=== PATIENT | male | born 1965 | race Caucasian/White ===

== ENCOUNTER → 2019-09-05 15:37 | Outpatient (CLI) | payer OTHER, SELFPAY ==
--- NOTE | 2019-09-05 15:39 | DI.RAD.S_ITS ---
PROCEDURE: XR CHEST 2V INDICATIONS: Feeling off, r/r cardiopulmonary etiology TECHNIQUE: 2 views of the chest were acquired. COMPARISON: None. FINDINGS: Surgical changes and devices: None. Lungs and pleura: Lungs are clear. No pleural effusions or pneumothorax. Mediastinum: Mediastinal contours are normal. Heart size is normal. Bones and chest wall: Multiple chronic-appearing right rib fractures. IMPRESSION: No acute disease Dictated by: Vipin Gaytan M.D. on 09/05/2019 at 16:06 Approved by: Vipin Gaytan M.D. on 09/05/2019 at 16:09
== END ==
PROVIDERS: Family Provider Family Medicine; PCP Family Medicine; Visit Provider Nurse Practitioner
DX: R53.83 Other fatigue (principal)
CPT/HCPCS: 71046

== ENCOUNTER → 2019-09-08 09:33 | Outpatient (CLI) | payer OTHER, SELFPAY ==
[2019-09-08 10:36] LABS: Add Manual Diff / Slide Review NO; Basophils Absolute Auto 0 /uL (0-100); Basophils Percent Auto 0.7 % (0-2); Eosinophils Absolute Auto 300 /uL (0-450); Eosinophils Percent Auto 5.1 % (2-4); Hematocrit 40.8 % (41-53); Hemoglobin 14.3 g/dL (13.5-17.5); Lymphocytes Absolute Auto 2100 /uL (1100-4500); Lymphocytes Percent Auto 34.8 % (25-40); Mean Corpuscular Hemoglobin 30.8 PG (26-34); Monocytes Absolute Auto 400 /uL (0-900); Monocytes Percent Auto 6.5 % (3-14); Neutrophils Absolute Auto 3200 /uL (1500-7000); Neutrophils Percent Auto 52.9 % (50-75); Platelet Count 305 X10^3/uL (150-400); Red Blood Cell Count 4.64 X10^6/uL (4.5-5.9); Red Cell Distribution Width 12.6 % (11.6-14.8); White Blood Cell Count 6.1 X10^3/uL (4.5-11.0)
[2019-09-08 10:46] LABS: Alanine Aminotransferase 28 IU/L (<50); Albumin 4.5 g/dL (3.5-5.0); Albumin Globulin Ratio 1.5 (1.0-2.8); Alkaline Phosphatase 51 U/L (38-126); Aspartate Aminotransferase 21 IU/L (17-59); BUN Creatinine Ratio 25.6 (6-22); Bilirubin Total 0.7 mg/dL (0.2-1.3); Blood Urea Nitrogen 23 mg/dL (9-20); Calcium 9.4 mg/dL (8.4-10.2); Carbon Dioxide 25 mmol/L (22-32); Chloride 105 mmol/L (98-107); Estimated Glomerular Filt Rate > 60.0 mL/min (>60); Glucose 158 mg/dL (70-100); HEMOLYSIS < 15 (0-50); Potassium 3.9 mmol/L (3.4-5.1); Sodium 139 mmol/L (137-145); Total Protein 7.5 g/dL (6.3-8.2)
[2019-09-08 10:55] LABS: Troponin I < 0.012 ng/mL (0.01-0.034)
== END ==
PROVIDERS: Family Provider Family Medicine; PCP Family Medicine; Visit Provider Nurse Practitioner
DX: R53.83 Other fatigue (principal)
CPT/HCPCS: 36415; 80053; 84484; 85025

== ENCOUNTER → 2019-09-23 07:23 | Outpatient (CLI) | payer OTHER, SELFPAY ==
[2019-09-23 08:53] LABS: Add Manual Diff / Slide Review NO; Basophils Absolute Auto 0 /uL (0-100); Basophils Percent Auto 0.8 % (0-2); Eosinophils Absolute Auto 300 /uL (0-450); Eosinophils Percent Auto 4.8 % (2-4); Hematocrit 40.4 % (41-53); Hemoglobin 14.4 g/dL (13.5-17.5); Lymphocytes Absolute Auto 1900 /uL (1100-4500); Lymphocytes Percent Auto 35.5 % (25-40); Mean Corpuscular HGB Conc 35.7 % (30-36); Mean Corpuscular Hemoglobin 31.4 PG (26-34); Mean Corpuscular Volume 87.8 fL (80-100); Monocytes Absolute Auto 400 /uL (0-900); Monocytes Percent Auto 7.3 % (3-14); Neutrophils Absolute Auto 2700 /uL (1500-7000); Neutrophils Percent Auto 51.6 % (50-75); Platelet Count 299 X10^3/uL (150-400); Red Blood Cell Count 4.59 X10^6/uL (4.5-5.9); Red Cell Distribution Width 12.5 % (11.6-14.8); White Blood Cell Count 5.3 X10^3/uL (4.5-11.0)
[2019-09-23 09:02] LABS: Cholesterol 237 mg/dL (140-199); Glucose 95 mg/dL (70-100); HDL Cholesterol 43 mg/dL (40-60); LDL Cholesterol Calculated 172 mg/dL (<100); Triglycerides 110 mg/dL (35-150)
[2019-09-23 09:32] LABS: Prostate Specific Antigen Scrn 0.771 ng/mL (0.1-4.0)
== END ==
PROVIDERS: PCP Family Medicine; Visit Provider Nurse Practitioner Family
DX: Z12.5 Encounter for screening for malignant neoplasm of prostate (principal); Z13.1 Encounter for screening for diabetes mellitus; E78.2 Mixed hyperlipidemia; R03.0 Elevated blood-pressure reading, without diagnosis of hypertension
CPT/HCPCS: 36415; 80061; 82947; 85025; G0103

== ENCOUNTER → 2019-10-24 08:01 | Outpatient (CLI) | payer OTHER, SELFPAY ==
[2019-10-24 10:00] LABS: Cholesterol 155 mg/dL (140-199); HDL Cholesterol 39 mg/dL (40-60); LDL Cholesterol Calculated 99 mg/dL (<100); Triglycerides 85 mg/dL (35-150)
== END ==
PROVIDERS: PCP Family Medicine; Referring Provider Nurse Practitioner Family; Visit Provider Nurse Practitioner Family
DX: E78.2 Mixed hyperlipidemia (principal)
CPT/HCPCS: 36415; 80061

== ENCOUNTER → 2020-04-02 10:11 | Outpatient (CLI) | payer OTHER, SELFPAY ==
[2020-04-03 20:58] LABS: COVID19 Sendout Not Detected (Not Detect)
== END ==
PROVIDERS: PCP Family Medicine; Visit Provider Nurse Practitioner
DX: Z01.812 Encounter for preprocedural laboratory examination (principal)
CPT/HCPCS: 87635

== ENCOUNTER 2020-04-05 11:45 | Day surgery (SDC) | payer OTHER, SELFPAY ==
--- NOTE | 2020-04-05 | PATH_ITS ---
[facility] Accession Number: [id number] . 01 Material submitted: . rectum - RECTAL POLYP . 02 Diagnosis: Rectal Polyp: Hyperplastic polyp. MRV 04/07/2020 0954 Local . 02 Electronically signed: . Alma Samson MD, Pathologist NPI- [id number] . 01 Gross description: . RECTAL POLYP: Received in formalin is 1 fragment(s) of martinez, soft tissue measuring 0.3 x 0.2 x 0.2 cm submitted entirely in 1 cassette(s) /QBJ 04/06/2020 0717 Local . 02 Pathologist provided ICD-10: Z12.11, K63.5 . 02 CPT . 954914 Performed at: 01 [facility] [address] [address], [place], [place] [id number] MD Dominik Prado MD Phone: [phone] Performed at: 02 [facility] [address] [place], [place] [id number] MD Jemima Rahman MD Phone: [phone]
[2020-04-05 12:20] VITALS: BP 131/82; PULSE 80; RESP 16; TEMP 36.2; O2SAT 98; BMI 28.5
--- NOTE | 2020-04-05 12:23 | P.OP.ENDO_ITS ---
Operative Date/Time/Diagnoses Date of procedure: 04/05/20 Time of procedure: 13:05 Pre-op diagnosis: 1. Screening for cancer Post-op diagnosis: other (1. Rectal polyp x1, 2 mm, removed with cold biopsy forceps, 2. Pancolonic diverticulosis) Procedure & Clinicians Study performed: 1. Colonoscopy Same procedure as scheduled: Yes Indications: 1. Screening for colon cancer Surgeon: Ekta Wynne Procedure Notes SCOAP/Timeout: 13:03 Procedure in detail: ENDOSCOPIST: Ekta Wynne MD Sedation RN: Cherelle Reina RN Sedation start time: 13:05 Sedation end time: 13:19 PROCEDURE: Colonoscopy with biopsy INDICATIONS: 1. Screening for cancer MEDICATION: Levsin 0.125 mg sublingual, incremental doses of Versed and fentanyl until appropriate level sedation achieved. ASA CLASS: 2 CECAL WITHDRAWAL TIME: 12 minutes COMPLICATIONS: None. EXTENT OF PROCEDURE: Cecum. QUALITY OF PREP: Good with portions of liquid stool. PROCEDURE: Prior to insertion of the colonoscope, a digital rectal examination was accomplished with circumferential palpation of the distal rectal mucosa without significant findings being noted. The high-definition colonoscope was passed into the rectum in the usual fashion and advanced over to the cecum without difficulty. The ileocecal valve, appendiceal stoma, and medial wall all could be inspected and no abnormalities were seen. ASCENDING COLON: As the colonoscope was withdrawn, care was taken to expose and inspect the haustral folds and a few, scattered diverticula were noted. HEPATIC FLEXURE: Mild diverticulosis, otherwise, normal, no polyps, or other a bnormalities. TRANSVERSE COLON: Mild diverticulosis, otherwise, normal, no polyps, or other abnormalities. DESCENDING COLON: Mild diverticulosis, otherwise, normal, no polyps, or other abnormalities. SIGMOID COLON: Mild diverticulosis, otherwise, normal, no polyps, or other abnormalities. RECTUM: Normal. J maneuver was produced a 2 mm rectal polyp was seen and removed with forceps. There was no significant perianal disease. The J maneuver was broken. The remainder of the rectum was inspected and there was no external hemorrhoid disease. The scope was withdrawn. IMPRESSION: 1. Rectal polyp x1, 2 mm, removed with cold biopsy forceps 2. Pancolonic diverticulosis, left greater than right PLAN: 1. Follow-up in clinic status post pathology results. The possibility of a missed lesion including a malignancy has been discussed with the patient previously. Potential alarm symptoms have been discussed and should be reported immediately. Post-procedure Recommendations: Will call with biopsy results Follow up: weeks (2) Disposition: PACU
--- NOTE | 2020-04-05 12:25 | PM.PREOP ---
Pre-operative Note COVID-19 COVID-19 status: Negative Result date/Date tested (Pos, Neg/Pending): 04/02/20 Interval Note History & Physical reviewed/Exam performed by Physician: Yes Changes to H&P: No ASA Class (for procedural sedation): II
[2020-04-05] MEDS: LACTATED RINGERS 1,000 ML 200 ML IV (12:38)
[2020-04-05] MEDS: HYOSCYAMINE 0.125 MG TABLET PO (12:38)
[2020-04-05] MEDS: MIDAZOLAM 5 MG/5 ML VIAL IV ×2 (13:04→13:09)
[2020-04-05] MEDS: fentaNYL 250 MCG/5 ML INJ IV ×2 (13:04→13:09)
[2020-04-05 13:24] VITALS: BP 110/74; PULSE 87; RESP 11; TEMP 36.1; O2SAT 94
[2020-04-05 13:29] VITALS: BP 116/76; PULSE 73; RESP 12; TEMP 36.6; O2SAT 95
[2020-04-05 13:34] VITALS: BP 105/63; PULSE 94; RESP 11; TEMP 36.7; O2SAT 96
[2020-04-05 13:39] VITALS: BP 110/81; PULSE 85; RESP 13; TEMP 36.6; O2SAT 96
[2020-04-05 13:46] VITALS: BP 119/80; PULSE 76; RESP 16; TEMP 36.8; O2SAT 95
--- NOTE | 2020-04-28 12:44 | P.HP_ITS ---
History of Present Illness History of Present Illness Date Patient Seen: 04/05/20 Chief complaint: Colonoscopy Narrative: 54 Years Old Male seen today for consideration of a screening colonoscopy. He has never had a colonoscopy. There have been no lower GI symptoms suggesting disease such as change in bowel habits, bleeding, abdominal pain or anemia. There's been no family history of colon cancer or colon polyps. Overall health issues have been stable, including no major cardiac events for at least 6 weeks. Current Medications (verified): 1) Hydrochlorothiazide 25 Mg Oral Tablet (Hydrochlorothiazide) .... Take 1 tablet by mouth once a day, for blood pressure control. 2) Amlodipine Besylate 10 Mg Oral Tablet (Amlodipine Besylate) .... take one tablet daily for control of blood pressure 3) Atorvastatin Calcium 20 Mg Oral Tablet (Atorvastatin Calcium) .... Take 1 tablet by mouth daily for cholesterol control. Allergies (verified): No Known Drug Allergies Past Medical History: Facial numbness Ulnar nerve entrapment at right elbow HERNIA, UMBILICAL Seasonal affective disorder ANXIETY ESOPHAGEAL REFLUX HYPERTENSION HYPERLIPIDEMIA Past Surgical History: Appendectomy Family History: Reviewed history from 01/08/2020 and no changes required: Father: HTN, Hyperlipidemia Mother: HTN Siblings: sister 6 years older healthy and brother 4 years older healthy some drug and alcohol abuse Social History: Reviewed history from 11/18/2019 and no changes required: Marital Status: Children: 2 Occupation: Teacher -[employer] Household Members: Ele - (08/1965) Education: [employer] Alcohol drinks/day: 2/day Caffeine use/day: 5 Exercise Times per Week: 3-4 Guns in home: yes Patient History Medical History (Updated 04/05/20 @ 12:15 by Jemima Horton RN) Family history of pseudocholinesterase deficiency (Acute) Family & Social History Family History Father Age: 83 Hyperlipidemia Gout Mother Age: 80 Arthritis Social History: household members spouse,children Tobacco & Substance use: Smoking Status Former smoker alcohol intake current alcohol intake frequency 0-2 drinks per day Substance Use Type does not use Meds Home Medications and Allergies Home Medications Medication Instructions Recorded Confirmed Type atorvastatin 20 mg tablet 20 mg PO DAILY #90 tab 09/24/19 04/05/20 Rx lisinopril 5 mg tablet 5 mg PO DAILY #180 tab 10/24/19 04/05/20 Rx hydrochlorothiazide 25 mg PO DAILY 04/05/20 04/05/20 History Allergies Allergy/AdvReac Type Severity Reaction Status Date / Time propofol Allergy Verified 04/05/20 12:17 Review of Systems Review of Systems ROS: Yes All systems reviewed with the patient and are negative except as otherwise documented Exam Vital Signs (past 8 hours): Oxygen Delivery Method Room Air Narrative Exam Narrative: GENERAL: Alert and oriented, appearing stated age and in no acute distress. HEENT: Head normocephalic/atraumatic. Pupils equal, round, and reactive to light and accomodation. Extraocular muscles intact. Tympanic membranes clear. Nasal mucosa moist, septum midline. Oral mucosa moist, no lesions. Neck soft and supple, no lymphadenopathy. LUNGS: Clear to ausculation bilaterally, no wheezes, rhonchi or rales. CV: Normal S1 and S2 with regular rate and rhythm, no audible murmurs, rubs or gallops. ABDOMEN: Soft, non-tender, non-distended, no organomegaly. Positive bowel sounds. EXTREMITIES: No clubbing, cyanosis, or edema. NEURO: Cranial nerves II through XII grossly intact, no focal deficits. PSYCH: Alert and oriented x 3. SKIN: No concerning lesions. Assessment & Plan Assessment & Plan narrative: 1. Screening for colon cancer Plan for colonoscopy. The nature and character of the procedure as well as anticipated results were discussed. The possibility of not completing the procedure was also discussed. Possible complications including aspiration pneumonia, bleeding, perforation and reaction to medications either for sedation or preparation and missed lesions were discussed. Questions were answered and proceeding to the colonoscopy was elected. Informed consent signed. I sincerely appreciate the referral allowing me to participate in this patient's care. Please contact me with any questions or concerns. Worst
== END 2020-04-05 14:00 | disposition home or self-care (01) ==
PROVIDERS: PCP Family Medicine; Referring Provider Student in an Organized Health Care Education/Training Program; Visit Provider Student in an Organized Health Care Education/Training Program
PROC: 0DJD8ZZ Inspection of Lower Intestinal Tract, Via Natural or Artificial Opening Endoscopic (ICD-10-PCS; CPT 45378; principal; 2020-04-05 13:00)
DX: K62.1 Rectal polyp (principal); Z12.11 Encounter for screening for malignant neoplasm of colon; I10 Essential (primary) hypertension; E78.5 Hyperlipidemia, unspecified; F41.9 Anxiety disorder, unspecified; K57.30 Diverticulosis of large intestine without perforation or abscess without bleeding
CPT/HCPCS: 45380; J2250; J3010

== ENCOUNTER → 2021-09-23 09:47 | Outpatient (CLI) | payer OTHER, SELFPAY ==
[2021-09-23 10:45] LABS: COVID19 -Nasal RAPID Negative (Negative)
== END ==
PROVIDERS: PCP Family Medicine; Visit Provider Surgery
DX: Z01.812 Encounter for preprocedural laboratory examination (principal); Z20.822 Contact with and (suspected) exposure to COVID-19
CPT/HCPCS: 87635; C9803

== ENCOUNTER 2021-09-26 09:50 | Day surgery (SDC) | payer OTHER, SELFPAY ==
[2021-09-20 15:09] VITALS: BMI 29.1
[2021-09-26] VITALS (10 sets, daily range): BP systolic 90–131; BP diastolic 47–81; PULSE 62–72; RESP 12–16; TEMP 36.6–36.9; O2SAT 94–99; BMI 29.9
[2021-09-26] MEDS: LACTATED RINGERS 1,000 ML 42 ML IV ×2 (10:27→11:49)
--- NOTE | 2021-09-26 10:32 | PM.HP.1 ---
History of Present Illness History of Present Illness Date Patient Seen: 09/26/21 Time Patient Seen: 10:32 Chief complaint: OPEN UMBILICAL HERNIA REPAIR W/MESH Narrative: 55-year-old man with a small umbilical hernia that is bothersome. Patient History Medical History (Updated 09/20/21 @ 15:14 by Harleen Yadav RN) Family history of pseudocholinesterase deficiency Headache HTN (hypertension) Surgical History (Updated 09/20/21 @ 15:10 by Harleen Yadav RN) Hx of appendectomy (~2003) Family & Social History Family History Father Age: 84 Hyperlipidemia Gout Mother Age: 81 Arthritis Social History: household members spouse,children Tobacco & Substance use: Tobacco type smokeless tobacco Smoking Status Former smoker alcohol intake current alcohol intake frequency 0-2 drinks per day Substance Use Type does not use Meds Home Medications and Allergies Home Medications Medication Instructions Recorded Confirmed Type amlodipine 10 mg tablet 10 mg PO DAILY 09/20/21 09/26/21 History atorvastatin 20 mg tablet 20 mg PO DAILY 09/20/21 09/26/21 History hydrochlorothiazide 12.5 mg tablet 12.5 mg PO DAILY 09/20/21 09/26/21 History Allergies Allergy/AdvReac Type Severity Reaction Status Date / Time succinylcholine Allergy Severe Anaphylaxis Verified 09/26/21 10:26 Exam Vital Signs (past 8 hours): - 09/26/21 10:15 Temperature 97.8 F Pulse Rate 66 Respiratory Rate 16 Blood Pressure 131/81 Pulse Oximetry 99 Oxygen Delivery Method Room Air Narrative Exam Narrative: Alert and oriented Reducible umbilical hernia with a fascial defect of equal to or less than 1 cm. Assessment & Plan Assessment and plan (1) Umbilical hernia: Qualifiers: Obstruction and gangrene presence: without obstruction or gangrene Qualified Code(s): K42.9 - Umbilical hernia without obstruction or gangrene Status: Acute Plan We discussed the risks and benefits of open umbilical hernia repair with mesh. He would like to proceed. COVID-19 COVID-19 status: Negative Result date/Date tested (Pos, Neg/Pending): 09/26/21 Time Spent With Patient Critical Care time: I spent a total of [] minutes of critical care time on this patient's care today; this time is exclusive of procedural time.
--- NOTE | 2021-09-26 10:58 | SUR.OPER ---
Supine on padded OR bed, head on pillow, arms secured on padded arm boards at <90 degrees abduction, legs uncrossed, safety belt at thigh, tape over blanket over lower legs.
[2021-09-26] MEDS: CEFAZOLIN 2 GM/20 ML SYRINGE IV (11:02)
[2021-09-26] MEDS: BUPIVACAINE 0.25% (PF) VIAL 30 ML INJ (11:06)
[2021-09-26] MEDS: LIDOCAINE 1% W/EPI 20 ML INJ (11:06)
--- NOTE | 2021-09-26 12:04 | P.OP_ITS ---
Operative Date/Time/Diagnoses Date of procedure: 09/26/21 Time of procedure: 12:04 Pre-op diagnosis: Umbilical hernia Post-op diagnosis: same Procedure & Clinicians Procedure: Open umbilical hernia repair with mesh Same procedure as scheduled: Yes Surgeon: Byron Valdez Click Yes if Unassisted: Yes Anesthesia Type: General Operative Notes Estimated Blood Loss (mL): 20 Procedure in detail: Ancef was administered. The patient was brought to the operating room, placed on the table in the supine position and general endotracheal anesthesia was induced. The abdomen was prepped and draped in the usual fashion. A time-out was performed. A 4 cm curvilinear infraumbilical incision was created sharply. Dissection was carried down to the hernia sac. The hernia sac was freed from the fascial ring and dissected off the umbilical stalk. Fascial ring was cleared. The fatty contents of the hernia sac were allowed to drop into the abdomen. Marcaine was injected into the fascia and the fascial defect was closed with 4 interrupted 0 Ethibond sutures in an interrupted fashion. The closure was transverse. The subcutaneous adipose tissue was cleared off of the anterior sheath circumferentially about 2 cm in each direction. A macro porous polypropylene mesh was trimmed to fit over the fascial closure and secured with Tisseel. Once the Tisseel was dried the umbilical skin was tacked to the deeper tissue with 3-0 Vicryl suture. The skin was closed with multiple interrupted 3- 0 Vicryl dermal sutures followed by a running 4 Monocryl subcuticular closure. Steri-Strips were applied and an abdominal binder was applied. Post-operative Condition: stable Disposition: PACU
== END 2021-09-26 13:30 | disposition home or self-care (01) ==
PROVIDERS: PCP Family Medicine; Referring Provider Surgery; Visit Provider Surgery
PROC: (CPT 49585; principal; 2021-09-26 11:15)
DX: K42.9 Umbilical hernia without obstruction or gangrene (principal); I10 Essential (primary) hypertension; Z72.0 Tobacco use
CPT/HCPCS: 49585; C1781; J0690; J1100; J1885; J2405; J2704; J3010

== ENCOUNTER 2021-10-29 14:10 | Emergency (ER) | payer OTHER, SELFPAY ==
[2021-10-29] VITALS (9 sets, daily range): BP systolic 117–179; BP diastolic 81–97; PULSE 94–115; RESP 20; TEMP 36.4; O2SAT 94–100
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
[2021-10-29] MEDS: HYDROMORPHONE 1 MG INJ IV ×3 (14:24→16:05)
[2021-10-29] MEDS: CEFAZOLIN 10 ML IV (14:46)
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
--- NOTE | 2021-10-29 15:01 | DI.CT.S_ITS ---
PROCEDURE: CT LE LT W CON INDICATIONS: ankle foot fracture TECHNIQUE: Helical axial CT of the left lower extremity was obtained without contrast and reformatted in multiple planes. Automated exposure control and/or adjustment of the dose parameters according to patient's size was utilized for radiation dose reduction. COMPARISON: [facility], CR, XR FOOT LT MIN 3V, 10/29/2021, 14:20. FINDINGS: The knee joint, mid and proximal tibia are unremarkable. There is an oblique nondisplaced fracture through the distal tibial metaphysis extending through the anterior and medial malleolus with involvement of the tibiotalar joint. Ankle mortise appears maintained. There is fragmentation of the medial malleolus. The calcaneus, talus and navicular bones are unremarkable. There is comminuted fracture involving the cuboid with involvement of the 5th tarsometatarsal joint and lateral displacement of the 5th metatarsal. The 5th metatarsal appears intact. Comminuted fracture of the base of the 4th metatarsal, with complete dislocation at the 4th tarsometatarsal joint as well, however, the lateral cuneiform appears intact. The 1st, 2nd and 3rd tarsometatarsal joints appear intact. Nondisplaced fracture through the base of the 3rd metatarsal noted. Displaced fractures through the 2nd and 3rd metatarsal diaphysis noted. The base of the 4th metatarsal is fractured and completely anteriorly dislocated. Base of the 5th metatarsal is also fractured in laterally dislocated. Fracture dislocation involves the head of the 4th metatarsal with anterior dislocation. Remainder of the metatarsophalangeal joints appear intact. Fracture through the base of the 2nd and 4th proximal phalanx. IMPRESSION: 1. Nondisplaced intra-articular distal tibial fracture. Comminuted displaced medial malleolar fracture. 2. Complex fractures at the tarsometatarsal interface with fracture dislocation of the 4th metatarsal 3. Comminuted fractures involving the distal metatarsals and proximal phalanx as above Approved by: Gary Jefferson M.D. on 10/29/2021 at 14:56
[2021-10-29 15:02] LABS: COVID19 -Nasal RAPID Negative (Negative)
[2021-10-29 15:08] LABS: Add Manual Diff / Slide Review NO; Basophils Absolute Auto 0 /uL (0-100); Basophils Percent Auto 0.4 % (0-2); Eosinophils Absolute Auto 300 /uL (0-450); Eosinophils Percent Auto 2.9 % (2-4); Hematocrit 40.6 % (41-53); Hemoglobin 13.7 g/dL (13.5-17.5); Lymphocytes Absolute Auto 4300 /uL (1100-4500); Lymphocytes Percent Auto 43.2 % (25-40); Mean Corpuscular HGB Conc 33.8 % (30-36); Mean Corpuscular Hemoglobin 29.7 PG (26-34); Mean Corpuscular Volume 87.8 fL (80-100); Monocytes Absolute Auto 700 /uL (0-900); Monocytes Percent Auto 6.9 % (3-14); Neutrophils Absolute Auto 4600 /uL (1500-7000); Neutrophils Percent Auto 46.6 % (50-75); Platelet Count 333 X10^3/uL (150-400); Red Blood Cell Count 4.62 X10^6/uL (4.5-5.9); Red Cell Distribution Width 12.2 % (11.6-14.8); White Blood Cell Count 9.8 X10^3/uL (4.5-11.0)
[2021-10-29 15:12] LABS: Alanine Aminotransferase 29 IU/L (<50); Albumin 4.7 g/dL (3.5-5.0); Albumin Globulin Ratio 1.6 (1.0-2.8); Alkaline Phosphatase 55 U/L (38-126); Aspartate Aminotransferase 24 IU/L (17-59); BUN Creatinine Ratio 19.4 (6-22); Bilirubin Total 0.5 mg/dL (0.2-1.3); Blood Urea Nitrogen 21 mg/dL (9-20); Calcium 9.8 mg/dL (8.4-10.2); Carbon Dioxide 28 mmol/L (22-32); Chloride 104 mmol/L (98-107); Estimated Glomerular Filt Rate > 60.0 mL/min (>60); Glucose 111 mg/dL (70-100); HEMOLYSIS 15 (0-50); Potassium 3.5 mmol/L (3.4-5.1); Sodium 142 mmol/L (137-145); Total Protein 7.7 g/dL (6.3-8.2)
[2021-10-29] MEDS: ONDANSETRON 4 MG/2 ML INJ IV (16:07)
[2021-10-29] MEDS: LIDOCAINE 2% W/EPI INJ 20 ML (16:27)
[2021-10-29] MEDS: TET,DIPH,PERTUSS(ACELL),VAC/PF 0.5 ML SYRINGE IM (16:35)
[2021-10-29] MEDS: BACITRACIN OINT 0.9 GM PCKT 1 APPLIC TOP (16:44)
--- NOTE | 2021-10-29 16:53 | PC.NURSE ---
Dorsalis pedis pulse palpable, foot wrapped in large ABD pad and kerlix for flight to [facility].
--- NOTE | 2021-10-29 16:54 | PC.NURSE ---
[facility] accepted pt, ED to ED transfer. [facility] launched per [facility] instructions. Emtala completed, pt/ verbalized understanding of plan of care w/ agreement.
--- NOTE | 2021-10-29 17:15 | PC.NURSE ---
wounds on left arm scrubbed with hibiclens and water. bacitracin applied. assisted with wound care. wound on left back also scrubbed with hiclens and water. bactiracin applied. also assisted with wound care.
--- NOTE | 2021-10-29 18:21 | PC.NURSE ---
radiology reports faxed per [facility] request.
== END 2021-10-29 17:20 | disposition short-term general hospital (02) ==
PROVIDERS: Emergency Provider Emergency Medicine; PCP Family Medicine
DX: S82.52XA Displaced fracture of medial malleolus of left tibia, initial encounter for closed fracture (principal); S92.342A Displaced fracture of fourth metatarsal bone, left foot, initial encounter for closed fracture; S92.322A Displaced fracture of second metatarsal bone, left foot, initial encounter for closed fracture; S92.332A Displaced fracture of third metatarsal bone, left foot, initial encounter for closed fracture; S92.352A Displaced fracture of fifth metatarsal bone, left foot, initial encounter for closed fracture; X58.XXXA Exposure to other specified factors, initial encounter; Z87.891 Personal history of nicotine dependence; Y93.01 Activity, walking, marching and hiking; Y92.89 Other specified places as the place of occurrence of the external cause; Z23 Encounter for immunization; Z20.822 Contact with and (suspected) exposure to COVID-19
CPT/HCPCS: 36415; 73562; 73610; 73630; 73700; 80053; 85025; 87635; 90471; 96365; 96375; 96376; 99284; 99285; C9803; 90715; J0690; J1170; J2405

== ENCOUNTER 2022-01-07 12:26 | Inpatient (IN) | payer OTHER, SELFPAY ==
[2022-01-07] VITALS (17 sets, daily range): BP systolic 113–146; BP diastolic 58–83; PULSE 74–90; RESP 15–23; TEMP 36.7–37.8; O2SAT 97–100; BMI 27.1
--- NOTE | 2022-01-07 | DI.ECHO.S_ITS ---
[place] [facility]---------+ [facility] +---------+ : : [address] : : : : [id number] : : : : Phone: [phone] Echocardiogram Report + + :Name: ANNIKA TOLBERT Study Date: 01/08/2022 Height: 72 in : :[facility] ReadingLocation: Weight: 205 lb : : Gender: Male BSA: 2.2 m2 : :: 1965 Age: 56 yrs BP: 143/83 mmHg: :Reason For Study: STOKE : :Ordering Physician: SIDNEY, : :SOY Performed By: Trisha Wallace : :Referring: SOY LITTLE : + + Interpretation Summary 1) Normal left ventricular size, thickness, wall motion, and systolic function (EF 55-60%). 2) Normal right ventricular size and function. 3) No significant valvular abnormalities. 4) Injection of contrast documented an interatrial shunt. 5) No prior Echo available for comparison. Recommend cardiology consult with Dr. Potts at [facility] for PFO closure. Procedure: A two-dimensional transthoracic echocardiogram with color flow and Doppler was performed. The study quality was technically adequate. There is no prior echocardiogram noted for this patient. The patient was in sinus rhythm with heart rates between 65-88 bpm during the exam. Left Ventricle: The left ventricle is normal in size and wall thickness. The ejection fraction is estimated to be 55-60%. Left ventricular systolic function appears normal without focal wall motion abnormalities. Right Ventricle: The right ventricle is normal in size and function. Atria: The left atrial size is normal. Right atrial size is normal. Injection of contrast documented an interatrial shunt. Mitral Valve: The mitral valve is normal in structure and function. There is trace mitral regurgitation. Aortic Valve: The aortic valve is trileaflet. The aortic valve opens well. There is no aortic valve stenosis. No aortic regurgitation is present. Tricuspid Valve: The tricuspid valve is normal in structure and function. There is trace tricuspid regurgitation. Pulmonic Valve: The pulmonic valve is not well visualized. There is no pulmonic valvular regurgitation. Great Vessels: The aortic root is normal size. The dimensions of the ascending aorta are normal. The IVC is of normal diameter and collapses greater than 50% with a sniff. This suggests a low right atrial pressure of 3 mm Hg. Pericardium/ Pleura There is no pericardial effusion. There is no pleural effusion. MMode/2D Measurements & Calculations LVIDd: 5.0 cm LVOT diam: 2.3 cm LVIDs: 3.4 cm Ao root diam: 3.4 cm FS: 32.6 % asc Aorta Diam: 3.2 cm IVSd: 0.97 cm Ao Arch Diam (Prox Trans): 2.7 cm LVPWd: 1.0 cm LV frazier. diameter/BSA (cm/m^2): 2.3 LV sys. diameter/BSA (cm/m^2): 1.6 LA A2 area: 18.4 cm2 RA long axis: 5.1 cm LA A4 area: 17.1 cm2 RA area: 15.4 cm2 LA length (vol): 5.4 cm RA vol: 39.6 ml LA vol: 49.5 ml RA : 18.4 ml/m2 LA vol index: 23.0 ml/m2 IVC diam: 1.3 cm RVD1 (basal): 3.0 cm RVD2 (mid): 2.6 cm TAPSE: 2.0 cm Doppler Measurements & Calculations Ao V2 max: 144.7 cm/sec LVOT Max Aleksander: 108.1 cm/sec Ao V2 mean: 102.6 cm/sec LV V1 max P.7 mmHg Ao max P.4 mmHg LV V1 VTI: 20.3 cm Ao mean P.7 mmHg PERLITA(I,D): 3.0 cm2 Ao V2 VTI: 26.9 cm PERLITA(V,D): 3.0 cm2 sev ratio: 0.75 PERLITA indexed to BSA (cm^2/m^2): 1.4 MV E max aleksander: 60.8 cm/sec PA V2 max: 96.6 cm/sec MV A max aleksander: 56.7 cm/sec PA V2 mean: 65.4 cm/sec MV E/A: 1.1 PA mean P.0 mmHg Med Peak E' Aleksander: 7.8 cm/sec PA pr(Accel): 29.3 mmHg E/E' med: 7.8 MV dec time: 0.19 sec SV(LVOT): 81.9 ml Reading Physician:01:27 PM
--- NOTE | 2022-01-07 12:56 | DI.RAD.S_ITS ---
PROCEDURE: XR CHEST 1V INDICATIONS: chest pain TECHNIQUE: One view of the chest was acquired. COMPARISON: [facility], CR, XR CHEST 2V, 09/05/2019, 15:39. FINDINGS: Surgical changes and devices: None. Lungs and pleura: Lungs are clear. No pleural effusions or pneumothorax. Mediastinum: Mediastinal contours appear normal. Heart size is normal. Bones and chest wall: No suspicious bony lesions. Overlying soft tissues appear unremarkable. Old right-sided healed rib fractures noted. IMPRESSION: No acute cardiopulmonary findings Approved by: Gary Jefferson M.D. on 01/07/2022 at 12:44
--- NOTE | 2022-01-07 13:06 | ED_ITS ---
HPI - Nausea/Vomiting/Diarrhea General Chief complaint: Nausea/Vomiting/Diarrhea Stated complaint: covid+; vertigo; throwing up Time Seen by Provider: 01/07/22 12:47 History of Present Illness HPI Narrative: 56-year-old gentleman with a history of left foot injury status post multiple blair rgeries [place], hypertension. He had been doing well post op. His was diagnosed with COVID on Sunday and he also tested positive but has remained completely asymptomatic. Got out of bed this morning around 630 am and felt significant vertigo. by the time he got to the toilet he was having difficulty staying on the toilet due to the vertigo. He helped himself to the ground and had continued emesis for about 3 hours. He was given zofran and compazine at home. He was significantly diaphoretic with the emesis and found that the vertigo was worse with any movement at that point. He presents to the emergency department at 12:40 p.m. complaining of vertigo, he is still feeling dizzy but it is not as positional. He states that he was actually in his usual state of health until this morning when he awoke. Describes no recent fevers, cough, prior abdominal pain vomiting or diarrhea. He has not been having any chest pain or palpitations. He does have his left foot in a splint and does use a rolling knee cart. He had been on Lovenox for a period of time after being discharged home from the hospital. He did have a dose of Lovenox this morning. He typically takes a baby aspirin b.i.d.. Related Data Home Medications Medication Instructions Recorded Confirmed amlodipine 10 mg tablet 10 mg PO QAM 09/20/21 01/07/22 atorvastatin 20 mg tablet 20 mg PO QAM 09/20/21 01/07/22 hydrochlorothiazide 12.5 mg tablet 12.5 mg PO QAM 09/20/21 01/07/22 aspirin 81 mg tablet 81 mg PO QAM 01/07/22 01/07/22 gabapentin 300 mg capsule 600 mg PO BEDTIME PRN 01/07/22 01/07/22 gabapentin 300 mg capsule 900 mg PO TID 01/07/22 01/07/22 ondansetron HCl 4 mg tablet 4 mg PO Q6H PRN 01/07/22 01/07/22 Allergies Allergy/AdvReac Type Severity Reaction Status Date / Time succinylcholine Allergy Severe Anaphylaxis Verified 01/07/22 17:15 Review of Systems Review of Systems Narrative: Remainder of complete review of systems is otherwise unremarkable except for that included in the HPI. Patient History Medical History Family history of pseudocholinesterase deficiency Headache HTN (hypertension) Surgical History Hx of appendectomy (~2003) Family History Father Age: 85 Hyperlipidemia Gout Mother Age: 82 Arthritis Social History household members: spouse and children Smoking Status: Former smoker alcohol intake: current Smoking Status: Former smoker alcohol intake frequency: 0-2 drinks per day Substance Use Type: does not use Exam Initial Vital Signs Initial Vital Signs: Vital Signs Temperature 98.1 F 01/07/22 12:40 Pulse Rate 84 01/07/22 12:40 Respiratory Rate 16 01/07/22 12:40 Blood Pressure 139/80 01/07/22 12:40 Pulse Oximetry 97 01/07/22 12:40 General: Healthy appearing, in no acute distress. Able to give a complete and coherent history. Well-nourished well-developed HEENT: Moist mucous membranes, normal sclera with reactive pupils, Neck: No JVD, supple Respiratory: Lungs are clear to auscultation, no wheezing no rales no rhonchi. Full and symmetrical air movement Cardiac: Regular rate and rhythm no murmurs no bruits Abdomen: Soft, nontender, good bowel tones, no flank pain Skin: Warm and dry, no rashes Neurologic: Grossly neurologically intact with no obvious asymmetries or abn ormalities, no significant nystagmus with provocative head maneuvers. When laying flat, vertigo is minimal. No paresthesias. NIH=0 Extremities: Left foot in a splint/cast Psych: Cooperative, appropriate insight and affect Course Orders Ordered: ED Orders 01/07/22 12:50 Complete Blood Count AUTO DIFF Stat Comprehensive Metabolic Panel Stat Lipase Stat Magnesium Stat Troponin & CK Cardiac Panel Stat 01/07/22 12:56 XR chest 1V Stat EKG-12 Lead Stat 01/07/22 13:17 MR head/brain wo/w con Stat 01/07/22 16:31 CT angio head and neck Stat 01/07/22 17:00 COVID19 -Nasal RAPID/Pre-Proc Stat 01/07/22 17:04 D Dimer Stat Discontinued Medications Amlodipine Besylate (Amlodipine 5 Mg Tablet) 10 mg PO NOW ONE Stop: 01/07/22 17:40 Last Admin: 01/07/22 17:45 Dose: 10 mg Documented by: Atorvastatin Calcium (Atorvastatin 20 Mg Tablet) 80 mg PO NOW ONE Stop: 01/07/22 17:40 Clopidogrel Bisulfate (Clopidogrel 75 Mg Tablet) 75 mg PO NOW ONE Stop: 01/07/22 17:40 Last Admin: 01/07/22 17:45 Dose: 75 mg Documented by: Gabapentin (Gabapentin 300 Mg Capsule) 900 mg PO NOW ONE Stop: 01/07/22 17:40 Last Admin: 01/07/22 17:45 Dose: 900 mg Documented by: Hydrochlorothiazide (Hydrochlorothiazide 25 Mg Tablet) 25 mg PO NOW ONE Stop: 01/07/22 17:40 Sodium Chloride (Normal Saline 0.9%) 1,000 mls @ 1,000 mls/hr IV BOLUS ONE Stop: 01/07/22 14:16 Last Infusion: 01/07/22 16:01 Dose: 0 mls/hr Documented by: Infusion: 01/07/22 15:07 Dose: 1,000 mls/hr Documented by: Infusion: 01/07/22 14:28 Dose: 0 mls/hr Documented by: Admin: 01/07/22 13:42 Dose: 1,000 mls/hr Documented by: ATAYLOR Ondansetron HCl (Ondansetron 4 Mg/2 Ml Inj) 4 mg IV NOW ONE Stop: 01/07/22 13:18 Last Admin: 01/07/22 13:42 Dose: 4 mg Documented by: ATAMARIAOR Vital Signs Vital signs: Vital Signs - 8 hr 01/07/22 12:40 01/07/22 13:07 01/07/22 13:30 Temperature 98.1 F Pulse Rate 84 80 74 Respiratory Rate 16 22 20 Blood Pressure 139/80 123/73 124/72 Pulse Oximetry 97 98 99 01/07/22 14:00 01/07/22 15:03 01/07/22 15:04 Temperature Pulse Rate 77 87 87 Respiratory Rate 19 Blood Pressure 136/76 130/75 Pulse Oximetry 98 98 99 01/07/22 15:30 01/07/22 16:00 01/07/22 16:30 Temperature Pulse Rate 79 82 87 Respiratory Rate 23 Blood Pressure 132/78 139/79 138/81 Pulse Oximetry 100 100 99 01/07/22 16:55 01/07/22 17:00 01/07/22 17:30 Temperature Pulse Rate 88 83 81 Respiratory Rate 16 Blood Pressure 143/80 H 145/70 H 141/79 H Pulse Oximetry 98 98 97 MDM - Nausea/Vomiting/Diarrhea Lab Data Result diagrams: 01/07/22 12:50 01/07/22 12:50 Labs: Lab Results 01/07/22 01/07/22 01/07/22 Range/Units 12:50 12:50 17:00 WBC 13.1 H (4.5-11.0) X10^3/uL RBC 4.40 L (4.5-5.9) X10^6/uL Hgb 12.5 L (13.5-17.5) g/dL Hct 37.4 L (41-53) % MCV 84.9 (80-100) fL MCH 28.4 (26-34) PG MCHC 33.5 (30-36) % RDW 12.7 (11.6-14.8) % Plt Count 341 (150-400) X10^3/uL Neut % (Auto) 87.0 H (50-75) % Lymph % (Auto) 8.2 L (25-40) % [place] % (Auto) 4.6 (3-14) % Eos % (Auto) 0.0 L (2-4) % Baso % (Auto) 0.2 (0-2) % Neut # (Auto) 64182 H (4210-7745) /uL Lymph # (Auto) 1100 (9242-7791) /uL [place] # (Auto) 600 (0-900) /uL Eos # (Auto) 0 (0-450) /uL Baso # (Auto) 0 (0-100) /uL D-Dimer (<230) ng/mL Sodium 138 (137-145) mmol/L Potassium 3.5 (3.4-5.1) mmol/L Chloride 103 (98-107) mmol/L Carbon Dioxide 27 (22-32) mmol/L BUN 13 (9-20) mg/dL Creatinine 0.77 (0.66-1.25) mg/dL Estimated GFR > 60 (>60) mL/min BUN/Creatinine Ratio 16.9 (6-22) Glucose 165 H (70-100) mg/dL Calcium 9.1 (8.4-10.2) mg/dL Magnesium 2.1 (1.6-2.3) mg/dL Total Bilirubin 0.4 (0.2-1.3) mg/dL AST 16 L (17-59) IU/L ALT 18 (<50) IU/L Alkaline Phosphatase 63 (38-126) U/L Total Creatine Kinase 46 L (55-170) U/L CK-MB (CK-2) TNP CK-MB (CK-2) Rel Index TNP Troponin I < 0.012 (0.01-0.034) ng/mL Total Protein 7.8 (6.3-8.2) g/dL Albumin 4.4 (3.5-5.0) g/dL Globulin 3.4 (1.7-4.1) g/dL Albumin/Globulin Ratio 1.3 (1.0-2.8) Lipase 92 (23-300) U/L SARS-CoV-2 (PCR) Positive H (Negative) 01/07/22 Range/Units 17:04 WBC (4.5-11.0) X10^3/uL RBC (4.5-5.9) X10^6/uL Hgb (13.5-17.5) g/dL Hct (41-53) % MCV (80-100) fL MCH (26-34) PG MCHC (30-36) % RDW (11.6-14.8) % Plt Count (150-400) X10^3/uL Neut % (Auto) (50-75) % Lymph % (Auto) (25-40) % [place] % (Auto) (3-14) % Eos % (Auto) (2-4) % Baso % (Auto) (0-2) % Neut # (Auto) (9533-7348) /uL Lymph # (Auto) (7350-4770) /uL [place] # (Auto) (0-900) /uL Eos # (Auto) (0-450) /uL Baso # (Auto) (0-100) /uL D-Dimer 1163 H (<230) ng/mL Sodium (137-145) mmol/L Potassium (3.4-5.1) mmol/L Chloride (98-107) mmol/L Carbon Dioxide (22-32) mmol/L BUN (9-20) mg/dL Creatinine (0.66-1.25) mg/dL Estimated GFR (>60) mL/min BUN/Creatinine Ratio (6-22) Glucose (70-100) mg/dL Calcium (8.4-10.2) mg/dL Magnesium (1.6-2.3) mg/dL Total Bilirubin (0.2-1.3) mg/dL AST (17-59) IU/L ALT (<50) IU/L Alkaline Phosphatase (38-126) U/L Total Creatine Kinase (55-170) U/L CK-MB (CK-2) CK-MB (CK-2) Rel Index Troponin I (0.01-0.034) ng/mL Total Protein (6.3-8.2) g/dL Albumin (3.5-5.0) g/dL Globulin (1.7-4.1) g/dL Albumin/Globulin Ratio (1.0-2.8) Lipase (23-300) U/L SARS-CoV-2 (PCR) (Negative) Imaging Data MRI brain: Radiologist's Impression: FINDINGS:? Image quality:? Excellent.? ? CSF Spaces:? Basal cisterns are patent.? No extra-axial fluid collections.? Ventricles are normal in size and shape.? Incidental persistent cavum septum pellucidum et vergae noted. ? Brain:? There is dense focal restricted diffusion involving the posterior infer ior left cerebellum. No midline shift.? No intracranial bleeds or masses.? No abnormal intracranial enhancement.? The brainstem appears normal.? No abnormal enhancement.? Enlarged perivascular space noted adjacent to the right anterior commissure. ? Skull and face:? Calvarial marrow is normal in signal.? Orbits appear normal.? ? Sinuses:? Sinuses and mastoids appear clear.? ? IMPRESSION:? ? 1. Acute left posterior inferior cerebellar infarct.? No enhancement or hemorrhage. ? ? ? Approved by: Gary Jefferson M.D. on 01/07/2022 at 14:42? CTA Head and neck: Radiologist's Impression: FINDINGS:? Image quality:? Excellent.? ? BRAIN:? CSF spaces:? Ventricles are normal in size and shape.? Basal cisterns are patent.? No extra-axial fluid collections.? Incidental persistent cavum septum pellucidum et vergae noted. ? Brain:? There is cerebral edema loss of siu-white distinction and sulcal effacement noted in the left posterior inferior cerebellar artery territory.? No midline shift.? No intracranial hemorrhage. ? Skull and face:? Calvarium and facial bones appear intact, without suspicious lesions.? Orbits appear normal.? ? Sinuses:? Sinuses and mastoids are clear.? ? HEAD CT ANGIOGRAPHY:? Anterior circulation:? Intracranial internal carotid arteries are normal in size and flow.? The flow within the paired anterior cerebral arteries is normal and symmetric.? The flow within the middle cerebral arteries is normal and symmetric.? The anterior communicating artery is seen.? No aneurysms are seen.? ? Posterior circulation:? Visualized portions of the vertebral arteries demonstrate normal caliber, and join to form a normal appearing basilar artery.? Flow within the posterior cerebral arteries is normal and symmetric.? No aneurysms are seen.? Focal occlusion of the left posterior inferior cerebellar artery noted on image 08/13. ? NECK CT ANGIOGRAPHY:? Carotid system:? The great vessels demonstrate a conventional anatomy as they arise from the aortic arch.? The origins of the common carotid arteries appear patent.? The common carotid arteries demonstrate normal caliber and courses.? Trace atherosclerotic plaque in the proximal left ICA noted without stenosis The bifurcation regions are both widely patent.? The internal carotid arteries demonstrate normal calibers and courses.? ? Posterior circulation:? The origins of the vertebral arteries both appear widely patent.? The more superior extracranial portions of both vertebral arteries also demonstrate normal courses and calibers.? They join to form a normal appearing basilar artery.? ? Soft tissues:? Visualized neck soft tissues demonstrate no suspicious abn ormalities.? ? Bones:? No suspicious bony lesions.? Visualized cervical spine appears normally aligned.? IMPRESSION:? ? 1. Focal occlusion of the proximal left posterior inferior cerebellar artery ? 2. Cerebral edema and sulcal effacement of the left posterior inferior cerebellum reflects acute infarct without evidence of hemorrhagic conversion.? No midline shift. ? Any quantitative measurements of stenosis were performed using NASCET criteria.? Approved by: Gary Jefferson M.D. on 01/07/2022 at 16:43? [facility] Narrative Medical decision making narrative: 56-year-old gentleman presents with acute vertigo this morning. He presents approximately 6 hours opted the onset of symptoms and vertigo has significantly improved by the time of arrival had no other significant neurologic symptoms. MRI does indicate an acute left posterior inferior cerebellar infarct. He is outside the window for tPA at time of presentation. Care is reviewed with stroke Neurology, Dr Sanderson. Recommended adding a D-dimer to make sure that he is not in a hypercoagulated state given his positive COVID. Recommends increasing atorvastatin to 80 mg, adding Plavix 75 mg and canned likely decrease baby aspirin to once a day rather than twice a day. CTA is currently pending to see if Interventional Radiology might be appropriate or helpful. Patient and are both updated. His primary care physician is Dr. Dow so Dr. Slaughter will need to be the admitting physician. At the stroke neurologists request, a D-dimer was added and is elevated. Will ask if she has additional recommendations for treating this elevated number beyond Plavix and aspirin. CTA results: Focal occlusion of the prox left posterior interior cerebelalr artery is NOT an interventional option per stroke neurologist. Per Dr Sanderson, would do heparin with no bolus starting tomorrow (24hrs after am lovenox 01/07 am) repeat CT tomorrow and at 48hrs. Due to elevated d dimer in a covid related stroke, would recoomend full anticoagulation with eliquis at 48hrs and stoping plavix and asprin. Care is reviewed with Dr. Slaughter and patient will be admitted. Critical Care Time Critical Care Time Critical Care Time: Yes Total Critical Care Time: 41 Attestation: Critical care time is separate from other billable procedures. There is a high probability of a significant, sudden or life-threatening deterioration that requires my full and direct attention, intervention and personal management. This critical care time includes consultation with family and other consulting doctors, review of records, and interpretation of data from labs, EKGs and imaging as well as managements of acute stroke, consultation with multiple physicians and keeping family informed of management decisions. 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
[2022-01-07 13:17] LABS: Add Manual Diff / Slide Review NO; Basophils Absolute Auto 0 /uL (0-100); Basophils Percent Auto 0.2 % (0-2); Eosinophils Absolute Auto 0 /uL (0-450); Hematocrit 37.4 % (41-53); Hemoglobin 12.5 g/dL (13.5-17.5); Lymphocytes Absolute Auto 1100 /uL (1100-4500); Lymphocytes Percent Auto 8.2 % (25-40); Mean Corpuscular HGB Conc 33.5 % (30-36); Mean Corpuscular Hemoglobin 28.4 PG (26-34); Mean Corpuscular Volume 84.9 fL (80-100); Monocytes Absolute Auto 600 /uL (0-900); Monocytes Percent Auto 4.6 % (3-14); Neutrophils Absolute Auto 11400 /uL (1500-7000); Platelet Count 341 X10^3/uL (150-400); Red Cell Distribution Width 12.7 % (11.6-14.8); White Blood Cell Count 13.1 X10^3/uL (4.5-11.0)
--- NOTE | 2022-01-07 13:17 | DI.MRI.S_ITS ---
PROCEDURE: MR HEAD/BRAIN WO/W CON INDICATIONS: acute onset severe vertigo with vomiting TECHNIQUE: Noncontrast axial T1 spin echo, axial T2 fast spin echo, sagittal and axial FLAIR, coronal T2 fast spin echo, axial gradient echo, axial diffusion and ADC through the brain. After the administration of contrast, axial and coronal 3D VIBE or T1 spin echo with fat saturation through the brain. COMPARISON: None. FINDINGS: Image quality: Excellent. CSF Spaces: Basal cisterns are patent. No extra-axial fluid collections. Ventricles are normal in size and shape. Incidental persistent cavum septum pellucidum et vergae noted. Brain: There is dense focal restricted diffusion involving the posterior inferior left cerebellum. No midline shift. No intracranial bleeds or masses. No abnormal intracranial enhancement. The brainstem appears normal. No abnormal enhancement. Enlarged perivascular space noted adjacent to the right anterior commissure. Skull and face: Calvarial marrow is normal in signal. Orbits appear normal. Sinuses: Sinuses and mastoids appear clear. IMPRESSION: 1. Acute left posterior inferior cerebellar infarct. No enhancement or hemorrhage. Approved by: Gary Jefferson M.D. on 01/07/2022 at 14:42
[2022-01-07 13:30] LABS: Alanine Aminotransferase 18 IU/L (<50); Albumin 4.4 g/dL (3.5-5.0); Albumin Globulin Ratio 1.3 (1.0-2.8); Alkaline Phosphatase 63 U/L (38-126); Aspartate Aminotransferase 16 IU/L (17-59); BUN Creatinine Ratio 16.9 (6-22); Bilirubin Total 0.4 mg/dL (0.2-1.3); Blood Urea Nitrogen 13 mg/dL (9-20); Calcium 9.1 mg/dL (8.4-10.2); Carbon Dioxide 27 mmol/L (22-32); Chloride 103 mmol/L (98-107); Creatine Kinase 46 U/L (55-170); Estimated Glomerular Filt Rate > 60 mL/min (>60); Globulin 3.4 g/dL (1.7-4.1); Glucose 165 mg/dL (70-100); HEMOLYSIS < 15 (0-50); Lipase 92 U/L (23-300); Magnesium 2.1 mg/dL (1.6-2.3); Potassium 3.5 mmol/L (3.4-5.1); Sodium 138 mmol/L (137-145); Total Protein 7.8 g/dL (6.3-8.2)
[2022-01-07 13:40] LABS: Troponin I < 0.012 ng/mL (0.01-0.034)
[2022-01-07] MEDS: SODIUM CHLORIDE 0.9% 1,000 ML 1000 ML IV (13:42)
[2022-01-07] MEDS: ONDANSETRON 4 MG/2 ML INJ IV (13:42)
--- NOTE | 2022-01-07 16:31 | DI.CT.S_ITS ---
PROCEDURE: CT ANGIO HEAD AND NECK INDICATIONS: cerebellar stroke about 630 am. ? LVO TECHNIQUE: Pre-contrast 4.5 mm thick sections acquired from the foramen magnum to the vertex. After the administration of intravenous contrast, 1 mm thick sections acquired from the aortic arch through the [place] of [place]. Post-contrast 4.5 mm thick sections then re-acquired from the foramen magnum to the vertex. 3-dimensional [id number] (MIP) and/or volume rendering reformats were acquired of the central intracranial vasculature and neck separately. For radiation dose reduction, the following was used: automated exposure control, adjustment of mA and/or kV according to patient size. COMPARISON: None. FINDINGS: Image quality: Excellent. BRAIN: CSF spaces: Ventricles are normal in size and shape. Basal cisterns are patent. No extra-axial fluid collections. Incidental persistent cavum septum pellucidum et vergae noted. Brain: There is cerebral edema loss of siu-white distinction and sulcal effacement noted in the left posterior inferior cerebellar artery territory. No midline shift. No intracranial hemorrhage. Skull and face: Calvarium and facial bones appear intact, without suspicious lesions. Orbits appear normal. Sinuses: Sinuses and mastoids are clear. HEAD CT ANGIOGRAPHY: Anterior circulation: Intracranial internal carotid arteries are normal in size and flow. The flow within the paired anterior cerebral arteries is normal and symmetric. The flow within the middle cerebral arteries is normal and symmetric. The anterior communicating artery is seen. No aneurysms are seen. Posterior circulation: Visualized portions of the vertebral arteries demonstrate normal caliber, and join to form a normal appearing basilar artery. Flow within the posterior cerebral arteries is normal and symmetric. No aneurysms are seen. Focal occlusion of the left posterior inferior cerebellar artery noted on image 08/13. NECK CT ANGIOGRAPHY: Carotid system: The great vessels demonstrate a conventional anatomy as they arise from the aortic arch. The origins of the common carotid arteries appear patent. The common carotid arteries demonstrate normal caliber and courses. Trace atherosclerotic plaque in the proximal left ICA noted without stenosis The bifurcation regions are both widely patent. The internal carotid arteries demonstrate normal calibers and courses. Posterior circulation: The origins of the vertebral arteries both appear widely patent. The more superior extracranial portions of both vertebral arteries also demonstrate normal courses and calibers. They join to form a normal appearing basilar artery. Soft tissues: Visualized neck soft tissues demonstrate no suspicious abnormalities. Bones: No suspicious bony lesions. Visualized cervical spine appears normally aligned. IMPRESSION: 1. Focal occlusion of the proximal left posterior inferior cerebellar artery 2. Cerebral edema and sulcal effacement of the left posterior inferior cerebellum reflects acute infarct without evidence of hemorrhagic conversion. No midline shift. Any quantitative measurements of stenosis were performed using NASCET criteria. Approved by: Gray Jefferson M.D. on 01/07/2022 at 16:43
[2022-01-07 17:15] LABS: COVID19 -Nasal RAPID POSITIVE (Negative)
[2022-01-07 17:33] LABS: D Dimer 1163 ng/mL (<230)
[2022-01-07] MEDS: GABAPENTIN 300 MG CAPSULE 900 MG PO (17:45)
[2022-01-07] MEDS: AMLODIPINE 5 MG TABLET 10 MG PO (17:45)
[2022-01-07] MEDS: CLOPIDOGREL 75 MG TABLET PO (17:45)
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
[2022-01-07] MEDS: GABAPENTIN 300 MG CAPSULE PO (22:30)
[2022-01-07] MEDS: hydroCHLOROthiazide 25 MG TABLET PO (22:30)
[2022-01-07] MEDS: ATORVASTATIN 20 MG TABLET 80 MG PO (22:30)
[2022-01-08 03:47] VITALS: TEMP 38.2
[2022-01-08] MEDS: ACETAMINOPHEN 325 MG TABLET 650 MG PO ×4 (03:47→21:04)
[2022-01-08 03:58] VITALS: BP 122/74; PULSE 95; RESP 17; TEMP 38.2; O2SAT 94
[2022-01-08] MEDS: GABAPENTIN 300 MG CAPSULE PO (06:10)
--- NOTE | 2022-01-08 06:49 | PC.NURSE ---
Pt. c/o of 2/10 headache and slight visual change around 0347, neuro checks then done at that time and everything check out. Pt. is totally alert and oriented without any neuro deficits. Medicated with Tylenol for the headache and pt. fell asleep. This am, called and asked for update regarding pt's. status and mentioned to her the above complaints and asked me if I called MD, informed I did not since neuro checks was fine. not very happy and asked me to do another neuro check right away and if anything out of ordinary, any minor changes for me to call MD right away. Neuro checks so far is fine, pupils PERRLA at 3.5 mm, pt denies vision changes, denies headache, denies numbness/tingling of all extremities. Pt. able to MAW, no c/o dizziness but pt. is also just laying in bed. MD not called since neuro status is WNL without any deficits. Pt. states that his vision is back to normal. Instructed pt. to let nurse know for any minor changes and not play it down so we can address them with the provider. Tele shows SR, VSS except slight temperature at 100.7F. Cont. to monitor.
[2022-01-08 07:00] VITALS: BP 124/72; PULSE 82; RESP 18; TEMP 36.7; O2SAT 97
--- NOTE | 2022-01-08 07:00 | DI.CT.S_ITS ---
PROCEDURE: CT HEAD/BRAIN WO CON INDICATIONS: stroke TECHNIQUE: Noncontrast 4.5 mm thick angled axial sections acquired from the foramen magnum to the vertex, with coronal and sagittal reformats. For radiation dose reduction, the following was used: automated exposure control, adjustment of mA and/or kV according to patient size. COMPARISON: None. FINDINGS: Image quality: Excellent. CSF spaces: Basal cisterns are patent. No extra-axial fluid collections. Ventricles are normal in size and shape. Incidental persistent cavum septum pellucidum et vergae noted. Brain: No midline shift. No intracranial masses or hemorrhage. [place]-white matter interface is normal. Posterior inferior cerebellar infarcts shows increasing edema and sulcal in face mint. No mass effect or midline shift. No evidence of hemorrhagic conversion Skull and face: Calvarium and visualized facial bones are intact, without suspicious lesions. Sinuses: Visualized sinuses and mastoids are clear. IMPRESSION: Left cerebellar posterior inferior subacute infarct shows appropriate evolution without hemorrhagic conversion or significant mass effect. Approved by: Gary Jefferson M.D. on 01/08/2022 at 8:27
[2022-01-08 08:16] VITALS: O2SAT 97
[2022-01-08] MEDS: AMLODIPINE 5 MG TABLET 10 MG PO (09:47)
[2022-01-08] MEDS: GABAPENTIN 300 MG CAPSULE 900 MG PO (09:48)
--- NOTE | 2022-01-08 10:36 | PC.NURSE ---
Pt VS stable. AOx4. Neuro check done at 8AM, no apparent symptoms during assessment. Pt expressed interest in sitting up in chair for the day. Dr. Slaughter said it was okay for him to do so. Pt went downstairs to have second CT scan. When he returned he was sent to ICU for closer assessment.
--- NOTE | 2022-01-08 10:38 | PM.PN.1 ---
Subjective Subjective Date Patient Seen: 01/08/22 Time Patient Seen: 10:38 Interval history: Patient seen and evaluated this morning. Said he did well overnight. He maybe had some transient vision episodes where he said maybe his vision was doubled for short time but nothing now. He feels less dizzy. He feels like he could to get up and walk if he had a scooter available. He has been eating well. No other new neurological changes he is speaking clearly moving hands and feet. Reviewed vital signs CT scans and laboratory tests. Care was discussed with stroke team at [place] Dr. Mccarthy. Exam Vital Signs (past 8 hours): - 01/08/22 03:47 01/08/22 03:58 01/08/22 07:00 Temperature 100.7 F H 100.7 F H 98.0 F Pulse Rate 95 H 82 Respiratory Rate 17 18 Blood Pressure 122/74 124/72 Pulse Oximetry 94 97 01/08/22 08:16 Temperature Pulse Rate Respiratory Rate Blood Pressure Pulse Oximetry 97 Oxygen Delivery Method Room Air Oxygen Flow Rate 0 Narrative Exam Narrative: Gen.: Alert no significant distress. Talking coherently. HEENT: Pupils equal round and reactive or mucosa is moist Cardio: S1-S2 regular rate and rhythm Respiratory: Lungs are clear no wheezes or crackles Abdomen: Soft nontender no rebound or guarding Extremities: Full range of motion no edema no cyanosis walking boot on left lower extremity with bandage in place. Neurologic: Cranial nerves 2-12 intact. Unable to walk patient at this time. Normal strength tone throughout. Objective Labs Result Diagrams: 01/07/22 12:50 01/07/22 12:50 Labs: Laboratory Results - last 24 hr 01/07/22 01/07/22 01/07/22 12:50 12:50 17:00 WBC 13.1 H RBC 4.40 L Hgb 12.5 L Hct 37.4 L MCV 84.9 MCH 28.4 MCHC 33.5 RDW 12.7 Plt Count 341 Neut % (Auto) 87.0 H Lymph % (Auto) 8.2 L [place] % (Auto) 4.6 Eos % (Auto) 0.0 L Baso % (Auto) 0.2 Neut # (Auto) 37127 H Lymph # (Auto) 1100 [place] # (Auto) 600 Eos # (Auto) 0 Baso # (Auto) 0 D-Dimer Sodium 138 Potassium 3.5 Chloride 103 Carbon Dioxide 27 BUN 13 Creatinine 0.77 Estimated GFR > 60 BUN/Creatinine Ratio 16.9 Glucose 165 H Calcium 9.1 Magnesium 2.1 Total Bilirubin 0.4 AST 16 L ALT 18 Alkaline Phosphatase 63 Total Creatine Kinase 46 L CK-MB (CK-2) TNP CK-MB (CK-2) Rel Index TNP Troponin I < 0.012 Total Protein 7.8 Albumin 4.4 Globulin 3.4 Albumin/Globulin Ratio 1.3 Lipase 92 SARS-CoV-2 (PCR) Positive H 01/07/22 17:04 WBC RBC Hgb Hct MCV MCH MCHC RDW Plt Count Neut % (Auto) Lymph % (Auto) [place] % (Auto) Eos % (Auto) Baso % (Auto) Neut # (Auto) Lymph # (Auto) [place] # (Auto) Eos # (Auto) Baso # (Auto) D-Dimer 1163 H Sodium Potassium Chloride Carbon Dioxide BUN Creatinine Estimated GFR BUN/Creatinine Ratio Glucose Calcium Magnesium Total Bilirubin AST ALT Alkaline Phosphatase Total Creatine Kinase CK-MB (CK-2) CK-MB (CK-2) Rel Index Troponin I Total Protein Albumin Globulin Albumin/Globulin Ratio Lipase SARS-CoV-2 (PCR) [facility] Medical History Family history of pseudocholinesterase deficiency Headache HTN (hypertension) Surgical History Hx of appendectomy (~2003) Family History Father Age: 85 Hyperlipidemia Gout Mother Age: 82 Arthritis Social History household members: spouse and children Smoking Status: Former smoker alcohol intake: current Assessment & Plan Assessment and plan (1) 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 No new neurological symptoms this morning. No maybe a transient episode of double vision throughout the night. No worsening dizziness vertigo spinning. In fact he says he thinks he can get up and walk this morning. Discussed care with stroke team Dr. Tang updated on CT scan. Discussed care concerns and recommendations. They recommended not starting heparin drips as discussed last night. Recommended Lovenox DVT prophylaxis full strength aspirin. Dr. Tang says after she reviews in most updated CT scan she will let me know about dual platelet therapy with Plavix. Continue with high-dose statin therapy and blood pressure management. COVID-19 patient tested positive for COVID-19 patient is asymptomatic at this point.? Patient is fully vaccinated with 3 doses.? Unsure of when his last vaccination was.? COVID positive in isolation. Asymptomatic. No treatment at this time. Left lower extremity ankle fracture with multiple surgeries bone graft.? Patient is in a walking boot nonweightbearing status. PT evaluation today to help with ambulation. Wound care nursing consultation was placed. Discussed with before dressing changes. Gabapentin dose was discussed with patient 200 mg 3 times a day 600 mg as needed with Tylenol. Hypertension patient has hypertension.? Blood pressure stabilized after night. Start low-dose Norvasc 5 mg a day to help with blood pressure. Hyperlipidemia patient has a history of hyperlipidemia change to high-dose statin of 80 mg a day Disposition and plan. Discussed care with stroke team Dr. Mccarthy. Discussed transferring patient to [place] [facility]. They say they do not currently have beds. She is certainly if 1 becomes available they would transfer the patient but feel like he stable. Scans were sent to them for their evaluation and review. Discussion on dual anti-platelet therapy. Physical therapy. Care discussed with . Proximally 1 hour and 30 minutes was spent coordinating care for this patient discussing with and doing history physical examination evaluation and note. Time Spent With Patient Critical Care time: I spent a total of [] minutes of critical care time on this patient's care today; this time is exclusive of procedural time. Quality VTE Deep Vein Thrombosis/Pulmonary Embolism Present on Admission: No
[2022-01-08 11:02] LABS: INR 1.2 (0.9-1.3); Prothrombin Time 13.6 SECONDS (10.1-12.7)
[2022-01-08 11:07] LABS: Alanine Aminotransferase 17 IU/L (<50); Albumin 4.1 g/dL (3.5-5.0); Albumin Globulin Ratio 1.2 (1.0-2.8); Alkaline Phosphatase 58 U/L (38-126); Aspartate Aminotransferase 16 IU/L (17-59); BUN Creatinine Ratio 12.8 (6-22); Bilirubin Total 0.4 mg/dL (0.2-1.3); Blood Urea Nitrogen 10 mg/dL (9-20); Calcium 9.3 mg/dL (8.4-10.2); Carbon Dioxide 32 mmol/L (22-32); Chloride 101 mmol/L (98-107); Estimated Glomerular Filt Rate > 60 mL/min (>60); Globulin 3.5 g/dL (1.7-4.1); Glucose 102 mg/dL (70-100); HEMOLYSIS < 15 (0-50); Potassium 3.5 mmol/L (3.4-5.1); Sodium 139 mmol/L (137-145); Total Protein 7.6 g/dL (6.3-8.2)
[2022-01-08 11:18] LABS: Add Manual Diff / Slide Review NO; Basophils Absolute Auto 0 /uL (0-100); Basophils Percent Auto 0.3 % (0-2); Eosinophils Absolute Auto 100 /uL (0-450); Hemoglobin 12.1 g/dL (13.5-17.5); Lymphocytes Absolute Auto 2300 /uL (1100-4500); Lymphocytes Percent Auto 20.6 % (25-40); Mean Corpuscular HGB Conc 33.7 % (30-36); Mean Corpuscular Hemoglobin 28.8 PG (26-34); Mean Corpuscular Volume 85.5 fL (80-100); Monocytes Absolute Auto 900 /uL (0-900); Monocytes Percent Auto 8.1 % (3-14); Neutrophils Absolute Auto 7700 /uL (1500-7000); Platelet Count 349 X10^3/uL (150-400); Red Blood Cell Count 4.21 X10^6/uL (4.5-5.9); Red Cell Distribution Width 12.7 % (11.6-14.8)
--- NOTE | 2022-01-08 11:24 | PC.NURSE ---
Rec'd call from Pt's . upset that MD was not called about Pt's change in status as noted in previous nurses notes. Discussed plan of care verbalized understanding of 's concerns. Discussed plan to move Pt to ICU. Told Dr. Slaughter of 's concerns and requested he call her as soon as he could. Spoke with that would call when he got the CT report back. Pt transferred to ICU.
[2022-01-08] MEDS: ENOXAPARIN 40 MG/0.4 ML SYRINGE SUBCUT (11:29)
[2022-01-08] MEDS: ASPIRIN 325 MG TABLET PO (11:30)
--- NOTE | 2022-01-08 12:01 | PC.NURSE ---
Addendum entered by Christin Reeder R.N. 01/08/22 16:16: 1327: Called Dr Slaughter to report echo results, order received for bilat upper and lower extremity venous US. 1505: Called Dr Slaughter to report US results, no orders at present time. Neuro checks continue, no changes. Original Note: 0945: Pt transferred to room 227 from [facility] for closer monitoring, possible initiation of heparin drip. Pt neurologically intact, no complaints of headache, diplopia, weakness, or numbness. NIHSS performed, score=0. Boot intact to L foot with palpable pedal and post tibial pulses. 1030: Per Dr Slaughter, heparin drip will not be initiated.
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
--- NOTE | 2022-01-08 12:54 | CM.DANOTE ---
DCP: Case received, EMR reviewed. Did not meet with patient secondary to his being COVID positive and in isolation. Was able to obtain information from nursing, as well as chart. Was able to complete DCP assessment based upon information currently available. Patient is a 56 year old male who admitted yesterday afternoon to the care of the hospitalist team. PCP: Dr. Dow. Payer: confirmed: [employer]. Patient came to the hospital via private vehicle secondary to having vertigo, as well as emesis for about 3 hours. Patient attempted anti-nausea medication at home. Patient had been to [facility] recently secondary to having a left foot injury and multiple surgeries. Patient had MRI which notes inferior cerebellar infarct. Patient also has COVID. According to notes, patient's spouse has had COVID as well. Did not meet with patient secondary to his being in isolation, but is noted that he resides here in [place] with his spouse, Ele, who is a DI nurse here at the hospital. Patient is employed at [employer]. Due to patient's history of left lower extremity ankle fracture with bone grafts, patient is in a walking boot, nonweight-bearing status at baseline. Patient had surgery about 2 weeks ago. According to Dr. Slaughter's latest note, he indicated, patient feeling less dizzy now, and could get up and walk if he had scooter available, and has been eating well. P: Patient does have P.T orders, as well as O.T. and speech, which is pending. DCP to continue to follow for needs. Jenny Abbott RN/Swimming Pool Salesperson Discharge Planning/Care Management Discharge Assessment Start: 01/08/22 12:51 Freq: Status: Active Protocol: Document 01/08/22 12:51 (Rec: 01/08/22 12:54 [id number]) Discharge Planning Assessment Assigned Architectural Engineer Jenny Abbott RN/Swimming Pool Salesperson Advance Directives? No History Provided By Patient,Medical Record Prior Living Arrangements House Household Members spouse,children Type of transporation used prior to Drives own vehicle admit Independent with ADL's Yes Is patient alert and oriented? Yes Barriers to Discharge No Comment Patient has supportive at home. Discharge Plan Home Transportation Arrangement Spouse Referrals Initiated Other Additional Comment Will see if patient has P.T. orders and how he does. Whiteboard Updated in Patient Room with No name and ext. # of Architectural Engineer Comment Patient has COVID, and is in isolation. Review Status In Process Next Review Type Continued Stay Review
[2022-01-08] MEDS: CLOPIDOGREL 75 MG TABLET PO (13:13)
[2022-01-08 13:30] VITALS: BP 130/76; PULSE 86; RESP 22; TEMP 36.6; O2SAT 97
--- NOTE | 2022-01-08 13:49 | DI.US.S_ITS ---
PROCEDURE: US PERIPH VENOUS LOW EXTREM BI INDICATIONS: PFO identified on echo TECHNIQUE: Real-time imaging, as well as color and pulse Doppler interrogation, were performed of the deep veins of both legs from the inguinal ligament to the popliteal fossa. COMPARISON: None. FINDINGS: Right: The common femoral, femoral and popliteal veins are normally compressible, and free of intraluminal thrombus. Color and pulse Doppler demonstrate normal phasic intravascular flow. There is normal augmentation response to distal compression maneuver. Left: The common femoral, femoral veins are normally compressible, and free of intraluminal thrombus. Color and pulse Doppler demonstrate normal phasic intravascular flow. In the left popliteal vein, there is incomplete compressibility and internal echoes consistent with nonobstructive deep venous thrombosis IMPRESSION: Left popliteal nonobstructive deep venous thrombosis Approved by: Gary Jefferson M.D. on 01/08/2022 at 15:04
--- NOTE | 2022-01-08 13:49 | DI.US.S_ITS ---
PROCEDURE: US PERIPH VENOUS UP EXTREM NEERU INDICATIONS: PFO identified on echo TECHNIQUE: Real-time imaging, as well as color and pulse Doppler interrogation, was performed of both upper extremity deep veins from the inferior neck to the antecubital fossa. COMPARISON: None. FINDINGS: Right: The internal jugular veins, visualized portions of the subclavian veins, axillary veins, and brachial veins are free of intraluminal thrombus. Where physically possible, the veins are normally compressible. Color and pulse Doppler demonstrate normal intraluminal flow, with expected phasicity and pulsatility. Additional scanning of the cephalic and basilic veins of the superficial system demonstrate normal compressibility, without thrombus. Left: The internal jugular veins, visualized portions of the subclavian veins, axillary veins, and brachial veins are free of intraluminal thrombus. Where physically possible, the veins are normally compressible. Color and pulse Doppler demonstrate normal intraluminal flow, with expected phasicity and pulsatility. Additional scanning of the cephalic and basilic veins of the superficial system demonstrate normal compressibility, without thrombus. IMPRESSION: No evidence of deep venous thrombosis, bilateral lower extremities Approved by: Gary Jefferson M.D. on 01/08/2022 at 14:59
[2022-01-08] MEDS: GABAPENTIN 100 MG CAPSULE 200 MG PO ×2 (15:55→21:05)
--- NOTE | 2022-01-08 17:19 | P.PN_ITS ---
Subjective Subjective Date Patient Seen: 01/08/22 Time Patient Seen: 17:31 Interval history: Patient seen and evaluated afternoon no new neurological changes as he has a little bit sleepy taking a nap. Been eating well. Reviewed imaging of ultrasound echocardiogram. Vital signs are stable. Discussed and updated care with Dr. Mccarthy from the stroke team. Exam Vital Signs (past 8 hours): - 01/08/22 13:30 Temperature 98 F Pulse Rate 86 Respiratory Rate 22 Blood Pressure 130/76 Pulse Oximetry 97 Oxygen Delivery Method Room Air Oxygen Flow Rate 0 Objective Labs Result Diagrams: 01/08/22 10:45 01/08/22 10:45 Labs: Laboratory Results - last 24 hr 01/07/22 01/08/22 01/08/22 17:04 10:45 10:45 WBC 11.0 RBC 4.21 L Hgb 12.1 L Hct 36.0 L MCV 85.5 MCH 28.8 MCHC 33.7 RDW 12.7 Plt Count 349 Neut % (Auto) 70.0 Lymph % (Auto) 20.6 L Carbon % (Auto) 8.1 Eos % (Auto) 1.0 L Baso % (Auto) 0.3 Neut # (Auto) 7700 H Lymph # (Auto) 2300 Carbon # (Auto) 900 Eos # (Auto) 100 Baso # (Auto) 0 PT INR D-Dimer 1163 H Sodium 139 Potassium 3.5 Chloride 101 Carbon Dioxide 32 BUN 10 Creatinine 0.78 Estimated GFR > 60 BUN/Creatinine Ratio 12.8 Glucose 102 H Calcium 9.3 Total Bilirubin 0.4 AST 16 L ALT 17 Alkaline Phosphatase 58 Total Protein 7.6 Albumin 4.1 Globulin 3.5 Albumin/Globulin Ratio 1.2 01/08/22 10:45 WBC RBC Hgb Hct MCV MCH MCHC RDW Plt Count Neut % (Auto) Lymph % (Auto) Carbon % (Auto) Eos % (Auto) Baso % (Auto) Neut # (Auto) Lymph # (Auto) Carbon # (Auto) Eos # (Auto) Baso # (Auto) PT 13.6 H INR 1.2 D-Dimer Sodium Potassium Chloride Carbon Dioxide BUN Creatinine Estimated GFR BUN/Creatinine Ratio Glucose Calcium Total Bilirubin AST ALT Alkaline Phosphatase Total Protein Albumin Globulin Albumin/Globulin Ratio [facility] Medical History Family history of pseudocholinesterase deficiency Headache HTN (hypertension) Surgical History Hx of appendectomy (~2003) Family History Father Age: 85 Hyperlipidemia Gout Mother Age: 82 Arthritis Social History household members: spouse and children Smoking Status: Former smoker alcohol intake: current Assessment & Plan Assessment and plan (1) Stroke due to embolism of cerebellar artery: Qualifiers: Laterality of affected vessel: left Qualified Code(s): I63.442 - 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 Mccarthy at and [facility]. Updated her on the finding of the PFO and left popliteal deep vein thrombosis. Discussed with her concern of likely source of venous thromboembolism is the po pliteal vein and the now diagnosis of PF0 and stroke. Discussed with her recommendations on anticoagulation. Her recommendations at this time for anticoagulation were full strength aspirin Plavix and DVT dose Lovenox. Discussed with her about the use of heparin drips she did not recommend heparin drips due to his acute and subacute stroke and concerns for possible bleed. She recommended current therapy with aspirin Plavix and Lovenox. Continued monitoring of venous thromboembolism by ultrasound and outpatient cardiac evaluation for PFO. Discussed again about transfer of care to patient to tertiary care center and she said there is not a bed available. Time Spent With Patient Critical Care time: I spent a total of [] minutes of critical care time on this patient's care today; this time is exclusive of procedural time. Quality VTE Deep Vein Thrombosis/Pulmonary Embolism Present on Admission: No
[2022-01-08] MEDS: POTASSIUM CHLORIDE 20 MEQ/15 ML UDC 40 MEQ PO (17:48)
[2022-01-08 20:00] VITALS: BP 118/64; PULSE 81; RESP 16; TEMP 36.9; O2SAT 96
[2022-01-08] MEDS: ATORVASTATIN 20 MG TABLET 80 MG PO (21:05)
[2022-01-09] VITALS: BP 98/58; PULSE 62; PULSE 70; RESP 13; RESP 16; TEMP 36.8; O2SAT 98
[2022-01-09 04:00] VITALS: BP 116/71; PULSE 63; RESP 19; TEMP 36.7; O2SAT 96
[2022-01-09 04:48] LABS: Add Manual Diff / Slide Review NO; Basophils Absolute Auto 0 /uL (0-100); Basophils Percent Auto 0.3 % (0-2); Eosinophils Absolute Auto 100 /uL (0-450); Eosinophils Percent Auto 1.1 % (2-4); Hemoglobin 11.7 g/dL (13.5-17.5); Lymphocytes Absolute Auto 2700 /uL (1100-4500); Lymphocytes Percent Auto 26.2 % (25-40); Mean Corpuscular HGB Conc 33.6 % (30-36); Mean Corpuscular Hemoglobin 28.6 PG (26-34); Mean Corpuscular Volume 85.2 fL (80-100); Monocytes Absolute Auto 900 /uL (0-900); Monocytes Percent Auto 8.4 % (3-14); Neutrophils Absolute Auto 6600 /uL (1500-7000); Platelet Count 355 X10^3/uL (150-400); Red Cell Distribution Width 12.8 % (11.6-14.8); White Blood Cell Count 10.3 X10^3/uL (4.5-11.0)
[2022-01-09 04:53] LABS: Cholesterol 126 mg/dL (140-199); HDL Cholesterol 36 mg/dL (40-60); LDL Cholesterol Calculated 67 mg/dL (<100); Triglycerides 115 mg/dL (35-150)
[2022-01-09 04:55] LABS: Alanine Aminotransferase 16 IU/L (<50); Albumin 3.8 g/dL (3.5-5.0); Albumin Globulin Ratio 1.1 (1.0-2.8); Alkaline Phosphatase 56 U/L (38-126); Aspartate Aminotransferase 15 IU/L (17-59); BUN Creatinine Ratio 13.3 (6-22); Bilirubin Total 0.5 mg/dL (0.2-1.3); Blood Urea Nitrogen 10 mg/dL (9-20); Carbon Dioxide 28 mmol/L (22-32); Chloride 102 mmol/L (98-107); Estimated Glomerular Filt Rate > 60 mL/min (>60); Globulin 3.4 g/dL (1.7-4.1); Glucose 100 mg/dL (70-100); HEMOLYSIS < 15 (0-50); Magnesium 2.3 mg/dL (1.6-2.3); Potassium 3.5 mmol/L (3.4-5.1); Sodium 139 mmol/L (137-145); Total Protein 7.2 g/dL (6.3-8.2)
[2022-01-09 08:00] VITALS: BP 124/69; BP 127/75; BP 137/72; PULSE 79; PULSE 84; PULSE 93; RESP 18; TEMP 36.8; O2SAT 98
--- NOTE | 2022-01-09 08:31 | PM.PN.1 ---
Subjective Subjective Date Patient Seen: 01/09/22 Time Patient Seen: 08:32 Interval history: Patient feeling overall well today. Having some slight dizziness and nausea. Physical therapy evaluated yesterday and found to be overall doing well. Otherwise no other significant change. Eating well. No vomiting. No other changes. Exam Vital Signs (past 8 hours): - 01/09/22 04:00 Temperature 98.1 F Pulse Rate 63 Respiratory Rate 19 Blood Pressure 116/71 Pulse Oximetry 96 Oxygen Delivery Method Room Air Oxygen Flow Rate 0 Narrative Exam Narrative: Physical exam shows an alert male lying in bed no acute distress Lungs are clear heart regular rate and rhythm. Neurologic exam completely normal I did not get him up to walk him. Clearly that is not capable. Physical therapy do not find any specific defect Objective Labs Result Diagrams: 01/09/22 04:15 01/09/22 04:15 Labs: Laboratory Results - last 24 hr 01/08/22 01/08/22 01/08/22 10:45 10:45 10:45 WBC 11.0 RBC 4.21 L Hgb 12.1 L Hct 36.0 L MCV 85.5 MCH 28.8 MCHC 33.7 RDW 12.7 Plt Count 349 Neut % (Auto) 70.0 Lymph % (Auto) 20.6 L [place] % (Auto) 8.1 Eos % (Auto) 1.0 L Baso % (Auto) 0.3 Neut # (Auto) 7700 H Lymph # (Auto) 2300 [place] # (Auto) 900 Eos # (Auto) 100 Baso # (Auto) 0 PT 13.6 H INR 1.2 Sodium 139 Potassium 3.5 Chloride 101 Carbon Dioxide 32 BUN 10 Creatinine 0.78 Estimated GFR > 60 BUN/Creatinine Ratio 12.8 Glucose 102 H Calcium 9.3 Magnesium Total Bilirubin 0.4 AST 16 L ALT 17 Alkaline Phosphatase 58 Total Protein 7.6 Albumin 4.1 Globulin 3.5 Albumin/Globulin Ratio 1.2 Triglycerides Cholesterol LDL Cholesterol, Calc HDL Cholesterol Nasal Screen MRSA (PCR) 01/08/22 01/09/22 01/09/22 22:00 04:15 04:15 WBC 10.3 RBC 4.10 L Hgb 11.7 L Hct 35.0 L MCV 85.2 MCH 28.6 MCHC 33.6 RDW 12.8 Plt Count 355 Neut % (Auto) 64.0 Lymph % (Auto) 26.2 [place] % (Auto) 8.4 Eos % (Auto) 1.1 L Baso % (Auto) 0.3 Neut # (Auto) 6600 Lymph # (Auto) 2700 [place] # (Auto) 900 Eos # (Auto) 100 Baso # (Auto) 0 PT INR Sodium 139 Potassium 3.5 Chloride 102 Carbon Dioxide 28 BUN 10 Creatinine 0.75 Estimated GFR > 60 BUN/Creatinine Ratio 13.3 Glucose 100 Calcium 9.0 Magnesium 2.3 Total Bilirubin 0.5 AST 15 L ALT 16 Alkaline Phosphatase 56 Total Protein 7.2 Albumin 3.8 Globulin 3.4 Albumin/Globulin Ratio 1.1 Triglycerides Cholesterol LDL Cholesterol, Calc HDL Cholesterol Nasal Screen MRSA (PCR) Negative for mrsa 01/09/22 04:15 WBC RBC Hgb Hct MCV MCH MCHC RDW Plt Count Neut % (Auto) Lymph % (Auto) [place] % (Auto) Eos % (Auto) Baso % (Auto) Neut # (Auto) Lymph # (Auto) [place] # (Auto) Eos # (Auto) Baso # (Auto) PT INR Sodium Potassium Chloride Carbon Dioxide BUN Creatinine Estimated GFR BUN/Creatinine Ratio Glucose Calcium Magnesium Total Bilirubin AST ALT Alkaline Phosphatase Total Protein Albumin Globulin Albumin/Globulin Ratio Triglycerides 115 Cholesterol 126 L LDL Cholesterol, Calc 67 HDL Cholesterol 36 L Nasal Screen [facility] (PCR) [facility] Medical History Family history of pseudocholinesterase deficiency Headache HTN (hypertension) Surgical History Hx of appendectomy (~2003) Family History Father Age: 85 Hyperlipidemia Gout Mother Age: 82 Arthritis Social History household members: spouse and children Smoking Status: Former smoker alcohol intake: current Assessment & Plan Assessment & Plan narrative: Acute left posterior inferior cerebellar infarct. Appears stable although slightly more symptoms today than yesterday. If any changes on review later today will obtain CT scan. Discussed with stroke team today. They do not want anticoagulation for 2 weeks. Feel it is high risk. Feel he should be stable and best care would be continuing aspirin low-dose Lovenox and Plavix. Plavix and will aspirin on discharge. CT scan in 2 weeks. Neurologic consult. At this point he is appears stable. Will see how the day goes. He has not had any abnormality on his EKG. No other source of stroke has been identified. Will continue current therapy. Possible discharge tomorrow. Patient request Neurology consult at the [facility] Left popliteal nonobstructing deep vein thrombosis. Discussed with neurologist to believes that this nonobstructing clot below the knee he should be low risk for PE. His recommendation is for repeat ultrasound in 1 week. And then decision at that time if needed. If continued to be nonobstructing his recommendation was to wait until [address] scan to evaluate. Intra atrial shunt consistent with PFO. Will need cardiac evaluation. Will set up probably at the [facility]. Left leg fracture ankle. Nonweightbearing. Continue current therapy. Greater than 35 minutes coordinating care discussing with patient and dictating. Time Spent With Patient Critical Care time: I spent a total of [] minutes of critical care time on this patient's care today; this time is exclusive of procedural time. Quality VTE Deep Vein Thrombosis/Pulmonary Embolism Present on Admission: No
[2022-01-09] MEDS: ASPIRIN 325 MG TABLET PO (08:51)
[2022-01-09] MEDS: GABAPENTIN 100 MG CAPSULE 200 MG PO (08:52)
[2022-01-09] MEDS: CLOPIDOGREL 75 MG TABLET PO (08:52)
[2022-01-09] MEDS: AMLODIPINE 5 MG TABLET PO (08:52)
[2022-01-09] MEDS: ENOXAPARIN 40 MG/0.4 ML SYRINGE SUBCUT (08:52)
[2022-01-09] MEDS: ONDANSETRON 4 MG/2 ML INJ IV (08:57)
--- NOTE | 2022-01-09 12:11 | ST.IPSCREEN ---
Pt was seated upright in chair with morning meal tray next to him when COMMERCIAL ESTIMATOR arrived. He reported no difficulty eating morning meal and clinician observed pt had eaten all of his yogurt and some cereal. Pt reported limited diet due to nausea at this time and stated he had no difficulty chewing or swallowing. Completed oral mechanism exam with pt. Mild tongue movement observed at rest, but when pt was asked to hold his tongue still, movements stopped. Dentition was present and WNL, strength and ROM of tongue and lips was WNL. Hyolaryngeal elevation and excursion was WNL. Pt presented with symmetrical features at rest and in motion. Structure and function of oral mechanism appears WNL for the purposes of speech and swallowing. No concerns for speech reported by pt or observed by clinician. No concerns for cognition and pt was alert and oriented. Completed swallow screen with thin water through a straw cup. Pt swallowed without difficulty observed or reported. No overt signs or symptoms of aspiration observed. Pt presents with speech, swallow, and cognition WNL and speech therapy is not recommended at this time.
--- NOTE | 2022-01-09 12:11 | PC.NURSE ---
Addendum entered by Fauzia Jules R.N. 01/09/22 14:46: 1200-Down for CT, returned and Dr Dow at bedside. Orders obtained for Omeprazole and gabapentin per home dosing. Nausea meds adjusted with increased frequency, PRN. Update given to Ele, via phone, update on todays head CT, and POC changes/adjustments per todays med changes and therapies. Per Ele, please have [facility] do a comparison read( on today's CT vs previous) prior to patient dc home. HH being set up for support at home, ousmane as Ele returns to work. Wound care supplies to be sent home (Telfa, kerlex, Nacl. Meplix tape) Request also made to assess stability with knee scooter, if unable will need home WC. Update to PT and CM David. Pt resting at present. Will attempt to group care, as Pt not getting enough sleep with constant interruptions. Original Note: Am shift Pt is resting quietly, requesting nausea medication and longer to nap. Poor sleep overnight, lots of interruptions. Zofran given. Pt using urinal for voiding. Nonweight bearing to LLE. Gabapentin effective for pain. Pt continues to express continued vertigo and nausea, feels increased concern about symptoms worsening from 24 hours prior. NIH remains 0, Pt with flat affect. Obvious disapointment with lack of progress today. Update to , who endorses concern as well and requesting update this afternoon. Concerns about dressing change that is needed by tomorrow to donor site and LLE. This is a complex dressing, per , and she would like to be present for this dressing change. [facility] has cleared , re:Covid+ status as of 01/10. Update to Coordinator Ruben. Pt resting quietly at present. Ate breakfast, late, at rest, feels nausea is better.
--- NOTE | 2022-01-09 12:48 | PT.IPTN ---
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 (01/07/22) COVID-19 (01/07/22) Physical Therapy Treatment Note M2 PT-IP Current Condition Start: 01/08/22 08:15 Freq: NEEDED Status: Active Protocol: Document 01/09/22 12:27 SP (Rec: 01/09/22 13:26 SP [id number]) Physical Therapy Current Condition Current Condition Evaluation Date 01/08/22 Treatment Diagnosis L cerebeller CVA; COVID +; L ankle fractures; difficulty in walking Onset Date 01/07/22 M3 PT-IP Subjective Start: 01/08/22 08:15 Freq: NEEDED Status: Active Protocol: Document 01/09/22 12:27 SP (Rec: 01/09/22 13:26 SP [id number]) Subjective Physical Therapy Visit Type Type Treatment Note Visit Start Time 12:27 Visit Stop Time 12:48 Total Visit Minutes 21 Notes Vital taken during tx: supine: BP 133/76 HR 98 SaO2 90s on RA post mobility seated in chair: BP 128/76 HR 95 Number of WEED THINNER Visits 1 Physical Therapy Visit Comments Patient Comments Pt agreeable to working with therapy. Patient Goals Return home with family support. Therapy Pain Assessment Pain When Pain Assessed During Mobility Pain Present Pain Present Pain Reported Location Left Foot Intensity 2 Scale Used Numeric (0 - 10) Description With Movement Pain Management Techniques Distraction,Elevation,Re- positioning,Timing of Activity with Medications M4 PT-IP Mobility and Gait Start: 01/08/22 08:15 Freq: NEEDED Status: Active Protocol: Document 01/09/22 12:27 SP (Rec: 01/09/22 13:26 SP [id number]) PT-Bed Mobility Assessment Supine to Sit Supine to Sit Independent Sit to Supine Sit to Supine Independent Scooting Scooting to Edge of Bed Independent Scooting Up and Down in Bed Independent PT-Transfer Assessment Sit to and From Stand Sit to and from Stand Standby Assistance,Use of Upper Extremities Equipment Transfer Assistive Device Gait Belt,Front Wheeled Walker Orthotic/Prosthetic Devices or Brace: Yes Transfers Transfer Destination Bed,Chair Transfer Technique ambulated with FWW Transfer Ability Level of Assist Standby Assistance Comments Mobility Comments Pt was lying in bed as PT arrived. Instructed QS, SLR with cues for full knee extension lift no higher than opp LE bent, slow controlled pacing. Walking boot was already on. Pt sat up EOB SBA, stood from the L side bed, hop on RLE using FWW around the room 30 ft total while maintaining NWB LLE SBA to chair, seated rest 2 min then back to L side bed, good use HP and FWW positioning, increased height of FWW with improved more upright posture. Declined need use of bathroom. Pt reported mild nausea but no dizziness with position changes and mobility in standing. Pt had call light and all needs in reach, communication board up to date SBA w/ FWW. Gait Assessment Gait Gait Assistance Required: Standby Assistance Distance (Feet) 30 Able to Maintain Weight Bearing Status Yes During Gait Assistive Devices Assistive Device Gait Belt,Front Wheeled Walker Orthotic/Prosthetic Devices or Brace: Yes Gait Deviations General Gait Pattern Antalgic,Decreased Stride Length,Decreased Feet Clearance,Flexed Trunk Factors Limiting Gait Function Factors Limiting Gait Function Decreased Activity Tolerance, Decreased Strength,Limited Range of Motion,Pain Comments Gait Comments See mobility comments for details. Stair Climbing Assessment Comments Stair Climbing Comments Not assessed. No stairs at home. PT-Balance Assessment Sitting Balance and Reactions Static Sitting Balance Ability Normal Dynamic Sitting Balance Ability Normal Standing Balance and Reactions Static Standing Balance Ability Good Dynamic Standing Balance Ability Good Device Used FWW M5 PT-IP Objective Assessments Start: 01/08/22 08:15 Freq: NEEDED Status: Active Protocol: Document 01/08/22 12:39 AW (Rec: 01/08/22 13:38 AW [id number]) Orientation Orientation/Cognition Level of Alertness Alert Orientation Name,Day of Week,Place, Situation Language Function Ability No Deficits Noted Safety Awareness Understands Safety Issues Memory Description No Deficits Noted Gross Range of Motion Upper Extremity ROM Assessment Within Functional Limits Lower Extremity ROM Assessment Left Impaired Strength Upper Extremity Strength Assessment Within Functional Limits Lower Extremity Strength Assessment Left Impaired Hip 4+/5 Knee 4/5 Comments Strength Comments RLE grossly 5/5 Coordination Assessment Gross Coordination Gross Coordination WNL Assessment Finger to Nose Test Normal Performance Pronation/Supination Test Normal Performance Sensation Assessment Sensation Gross Sensation WNL Muscle Tone Muscle Tone WNL Yes Other Assessments Other Other Assessments Cranial nerves grossly intact. Oculomotor and vestibular screens were WNL and did not provoke dizziness. M6 PT-IP Treatment Start: 01/08/22 08:15 Freq: NEEDED Status: Active Protocol: Document 01/09/22 12:27 SP (Rec: 01/09/22 13:26 SP [id number]) Physical Therapy Treatment Exercises Exercises Quad Sets,Straight Leg Raises Education Education Provided Safety Other Treatments Other Treatment Performed Educated importance quad set pre SLR for strengthening and full ROM in to extension, improved demostration. M7 PT-IP Assessment and Plan Start: 01/08/22 08:15 Freq: NEEDED Status: Active Protocol: Document 01/09/22 12:27 SP (Rec: 01/09/22 13:26 SP [id number]) PT Summary Assessment and Plan Potential Rehabilitation Potential Good Status of Condition at Evaluation Evolving Summary Impairments Pain,ROM,Strength,Balance,Gait Progress Towards Goals Progressing Toward Goals Assessment Summary Pt improving in mobility, I in bed mobility, SBA using FWW hopping on RLE with good demo NWB on LLE. Stable vitals, continues have nausea but dizziness has resolved. Pt had knee scooter at home, will assess safety mobilizing next tx. Will continue to assess progress. Goals Bed Mobility Goal Independent Transfer Goal Independent,Front Wheeled Walker Gait Goal Independent,Front Wheel Walker Gait Distance 50 Days to Meet Goals 2 Frequency of Treatment Frequency Of Treatment Once a Day Treatment Plan Physical Therapy Treatment Plan Bed Mobility Training,Transfer Training,Gait Training, Therapeutic Exercise,Balance Retraining,Discharge Planning, Hot or Cold Pack,Neuromuscular Re-ed Other Recommendations and Next Treatment Safety use of knee scooter, LE Focus strengthening in supine, SLR ABD in sidelying LLE ( discussed but not peformed). Precautions Other Precautions COVID (+) Weight Bearing Status Weight Bearing Status Non-Weight Bearing Allowed Weight Bearing Amount (enter % NWB LLE or #) (%) Recommendations To Nursing Amount of Assist Needed Standby Assistance Discharge Recommendations PT Discharge Recommendations Home with Assistance Transportation Needs at Discharge Private Vehicle
--- NOTE | 2022-01-09 12:56 | DI.CT.S_ITS ---
PROCEDURE: CT HEAD/BRAIN WO CON INDICATIONS: stroke worsening symptoms TECHNIQUE: Noncontrast 4.5 mm thick angled axial sections acquired from the foramen magnum to the vertex, with coronal and sagittal reformats. For radiation dose reduction, the following was used: automated exposure control, adjustment of mA and/or kV according to patient size. COMPARISON: [facility], CT, CT HEAD/BRAIN WO CON, 01/08/2022, 9:04. FINDINGS: Image quality: Excellent. CSF spaces: Basal cisterns are patent. No extra-axial fluid collections. The ventricles are symmetric in size and shape. Brain: Subacute infarct involving the posterior-inferior left cerebellar hemisphere is redemonstrated. No intracranial bleeds or masses. There is cerebral volume loss for age, with resultant ventricular and sulcal prominence. There are periventricular and deep white matter chronic small vessel ischemic changes. There is intracranial internal carotid artery atherosclerosis. Skull and face: Calvarium and visualized facial bones appear intact, without suspicious lesions. Sinuses: Visualized sinuses and mastoids are clear. IMPRESSION: 1. Evolving, subacute posterior-inferior left cerebellar hemisphere infarct. No new areas of infarction. 2. No intracranial hemorrhage. Dictated by: Nolvia Paula MD, PhD on 01/09/2022 at 13:23 Approved by: Nolvia Paula MD, PhD on 01/09/2022 at 13:25
[2022-01-09 12:58] VITALS: BP 128/74; PULSE 72; RESP 16; TEMP 36.6; O2SAT 98
--- NOTE | 2022-01-09 13:31 | OT.IPNOTE ---
OT eval and treat order received. Discussed case with pt, P.T., and nursing. Pt appears to be at his new baseline for ADLs and working with P.T. for functional mobility. No OT needs at this time. Will discharge the order.
--- NOTE | 2022-01-09 13:34 | PM.PN.1 ---
Subjective Subjective Date Patient Seen: 01/09/22 Time Patient Seen: 13:34 Interval history: Patient with increased dizziness and nausea. [place] like it was a little worse today is concern for possible worsening. CT was ordered Exam Vital Signs (past 8 hours): - 01/09/22 08:00 01/09/22 12:58 Temperature 98.3 F 97.8 F Pulse Rate 93 H 72 Respiratory Rate 18 16 Blood Pressure 124/69 128/74 Pulse Oximetry 98 98 Oxygen Delivery Method Room Air Oxygen Flow Rate 0 Narrative Exam Narrative: Alert male in no acute distress Objective Labs Result Diagrams: 01/09/22 04:15 01/09/22 04:15 Labs: Laboratory Results - last 24 hr 01/08/22 01/09/22 01/09/22 22:00 04:15 04:15 WBC 10.3 RBC 4.10 L Hgb 11.7 L Hct 35.0 L MCV 85.2 MCH 28.6 MCHC 33.6 RDW 12.8 Plt Count 355 Neut % (Auto) 64.0 Lymph % (Auto) 26.2 Mclean % (Auto) 8.4 Eos % (Auto) 1.1 L Baso % (Auto) 0.3 Neut # (Auto) 6600 Lymph # (Auto) 2700 Mclean # (Auto) 900 Eos # (Auto) 100 Baso # (Auto) 0 Sodium 139 Potassium 3.5 Chloride 102 Carbon Dioxide 28 BUN 10 Creatinine 0.75 Estimated GFR > 60 BUN/Creatinine Ratio 13.3 Glucose 100 Calcium 9.0 Magnesium 2.3 Total Bilirubin 0.5 AST 15 L ALT 16 Alkaline Phosphatase 56 Total Protein 7.2 Albumin 3.8 Globulin 3.4 Albumin/Globulin Ratio 1.1 Triglycerides Cholesterol LDL Cholesterol, Calc HDL Cholesterol Nasal Screen MRSA (PCR) Negative for mrsa 01/09/22 04:15 WBC RBC Hgb Hct MCV MCH MCHC RDW Plt Count Neut % (Auto) Lymph % (Auto) Mclean % (Auto) Eos % (Auto) Baso % (Auto) Neut # (Auto) Lymph # (Auto) Mclean # (Auto) Eos # (Auto) Baso # (Auto) Sodium Potassium Chloride Carbon Dioxide BUN Creatinine Estimated GFR BUN/Creatinine Ratio Glucose Calcium Magnesium Total Bilirubin AST ALT Alkaline Phosphatase Total Protein Albumin Globulin Albumin/Globulin Ratio Triglycerides 115 Cholesterol 126 L LDL Cholesterol, Calc 67 HDL Cholesterol 36 L Nasal Screen MRSA (PCR) [facility] Medical History Family history of pseudocholinesterase deficiency Headache HTN (hypertension) Surgical History Hx of appendectomy (~2003) Family History Father Age: 85 Hyperlipidemia Gout Mother Age: 82 Arthritis Social History household members: spouse and children Smoking Status: Former smoker alcohol intake: current Assessment & Plan Assessment & Plan narrative: Posterior cerebral CVA. Exam has not really changed. Reviewed with radiologist CT scan. There is no progression. Some evolution only. No evidence of bleeding. Discussed with patient. He understands questions answered. Will continue Zofran add Reglan if he needs it and follow. Also will discuss with discharge planning for stroke rehab. Time Spent With Patient Critical Care time: I spent a total of [] minutes of critical care time on this patient's care today; this time is exclusive of procedural time. Quality VTE Deep Vein Thrombosis/Pulmonary Embolism Present on Admission: No
[2022-01-09] MEDS: PANTOPRAZOLE DR 20 MG TABLET PO (13:52)
[2022-01-09] MEDS: METOCLOPRAMIDE 10 MG/2 ML INJ IV (13:52)
[2022-01-09] MEDS: POTASSIUM CHLORIDE 20 MEQ TAB 40 MEQ PO (13:53)
--- NOTE | 2022-01-09 13:54 | DIET.CONS ---
Dietary Consultation Note Admission Date: 01/07/2022 18:21 Assessment: 56y M covid+ with subacute stroke sx as vertigo who had traumatic foot injury several months ago with donor skin graft referred to nutrition for wound support. This RD attempted to call into pt room with no answer. Called pt , Ele, regarding starting ONS Sandeep to support wound healing while pt with nausea/vertigo. Pt thinks this good idea. Sent information and ONS Sandeep packet up to pt for review. Discussed c kitchen double protein portions and fruit cup c meals. Ht: 182.88 cm Wt: 91.5 kg BMI: 27.1 Last BM: 01/07/22 (01/07/22 20:25) MNA: 14 Santi Score: 22 Diet: 01/08/22 Breakfast General (Regular) Diet Diet Modifications: Nutrition Percent Meal Consumed 75% 01/08/22 09:03 Labs: RBC 4.10 X10^6/uL (4.5-5.9) L 01/09/22 04:15 Hgb 11.7 g/dL (13.5-17.5) L 01/09/22 04:15 Hct 35.0 % (41-53) L 01/09/22 04:15 Creatinine 0.75 mg/dL (0.66-1.25) 01/09/22 04:15 Electronically Signed by: Ruby Houston 01/09/22 13:54 Clinical Dietitian [address] [id number]
--- NOTE | 2022-01-09 14:02 | CM.DPC ---
DCP Cont: Per , pt's CT scan returned and shows CVA but no hemorrhage and inquired if pt would benefit from Acute Inpt Rehab and SW called PT and STORE DIRECTOR who saw pt and they do not feel pt would meet criteria for Acute Rehab for his [employer] to auth and that he could tolerate 3 hours with his ankle fx as well. Pt has been mobilizing well with PT and recommendation is home with spouse assist as he has been SBA for all mobilities. PT plans to work with pt tomorrow with knee scooter as he has one at home he has been using at baseline and will try here in the hospital prior to d/c. feels HH may be beneficial at d/c for additional assist and signed the F2F. SW called into pt room but no answer. Per RN, willing to discuss HH with pt bedside as she has to go in to the room for meds and pt on COVID precautions and per RN pt wanted SW to ask his spouse. SW called pt's spouse Ele who is an RN and has been very involved in pt's care and updated on likely d/c tomorrow if pt remains medically stable. Spouse confirms that she can transport at d/c and plans to be with pt at d/c and not return to work right away but will help assess his needs once home. SW discussed HH services and frequency and initially spouse declined but then was agreeable with HH referral and then if needed they will begin services and if not then they will cancel. Spouse does not have HH preference and agreeable with referral based on Vendor Calendar. SW called [facility] based on Vendor Calendar and made new referral and they have availability this week for [place] but would need to get insurance auth which can take a couple days sometimes. SW Right Faxed clinicals to review. Plan: SW to follow for plan of pt d/c home tomorrow via spouse POV and to fax signed F2F, orders, and d/c summary to [facility] at discharge. PANCHITO Miguel
[2022-01-09 16:00] VITALS: BP 140/74; PULSE 88; RESP 20; TEMP 36.9; O2SAT 99
[2022-01-09] MEDS: GABAPENTIN 600 MG TABLET 900 MG PO ×2 (16:10→20:06)
[2022-01-09 20:00] VITALS: BP 129/68; PULSE 97; RESP 18; TEMP 36.5; O2SAT 98
[2022-01-09] MEDS: ACETAMINOPHEN 325 MG TABLET 650 MG PO (20:07)
[2022-01-09] MEDS: ATORVASTATIN 20 MG TABLET 80 MG PO (20:17)
[2022-01-10] VITALS: BP 127/74; PULSE 90; RESP 19; TEMP 36.6; O2SAT 95
[2022-01-10 04:00] VITALS: BP 114/65; PULSE 78; RESP 19; TEMP 37.4; O2SAT 98
[2022-01-10 05:49] LABS: BUN Creatinine Ratio 23.5 (6-22); Blood Urea Nitrogen 19 mg/dL (9-20); Calcium 9.3 mg/dL (8.4-10.2); Carbon Dioxide 30 mmol/L (22-32); Chloride 105 mmol/L (98-107); Estimated Glomerular Filt Rate > 60 mL/min (>60); Glucose 106 mg/dL (70-100); HEMOLYSIS < 15 (0-50); Potassium 3.7 mmol/L (3.4-5.1); Sodium 142 mmol/L (137-145)
[2022-01-10] MEDS: ASPIRIN 325 MG TABLET PO (08:56)
[2022-01-10] MEDS: ENOXAPARIN 40 MG/0.4 ML SYRINGE SUBCUT (08:56)
[2022-01-10] MEDS: GABAPENTIN 600 MG TABLET 900 MG PO (08:56)
[2022-01-10] MEDS: CLOPIDOGREL 75 MG TABLET PO (08:56)
[2022-01-10] MEDS: AMLODIPINE 5 MG TABLET PO (08:56)
[2022-01-10 09:00] VITALS: BP 125/74; PULSE 85; RESP 17; TEMP 36.8; O2SAT 98
--- NOTE | 2022-01-10 09:25 | CM.DPNOTE ---
caseworker protective services contacted pt's spouse, Ele. Spouse picking up patient at 930am 01/10 to transport home via POV. [facility] informed of discharge today. F2F, discharge summary and orders faxed to [facility]. No other dc needs identified at this time. Wellington HUANG
--- NOTE | 2022-01-10 10:34 | PC.NURSE ---
Am shift Pt feeling significantly improved this AM. No further nausea. Significant improvement from this RN's assessment 24 hours prior. NIH 0. DC orders obtained, Victor M will have follow up US to E for DVT next week, although imaging unable to get outpatient appt until 01/27. Order sent to [facility] for appt sooner. Follow up with Dr Dow to be scheduled next week. Continue with wound care per [facility] recomendatiosn. This was all reviewed with Patient and Ele upon dc. Rx sent to [facility], and picked up prior to patient dc. Wheel chair to private vehicle.
--- NOTE | 2022-01-10 11:33 | PT-IP ANOTE ---
Attempted to see pt at 11:33, but pt had already d/c home.
--- NOTE | 2022-01-10 11:52 | CM.DPNOTE ---
Faxed referral packet per [place] to [facility] and received fax conf. Alma Rosa Lemos CM Assist.
--- NOTE | 2022-01-10 13:25 | P.DS_ITS ---
History of Present Illness History of Present Illness Date Patient Seen: 01/10/22 Time Patient Seen: 08:00 Date of Onset of Symptoms: 01/07/22 Chief complaint: covid+; vertigo; throwing up Narrative: See history and physical dictated by Dr. Bolden on the Discharge Providers Provider Date of admission: 01/07/22 18:21 Discharge Date: 01/10/22 Primary care physician: Blaise Dow MD Consults: 01/07/22 20:25 Consult to Discharge Planning Routine Comment: Consult to Occupational Therapy Evaluate & Treat Comment: Physician Instructions: Evaluate and treat Consult to Physical Therapy Evaluate & Treat Comment: Physician Instructions: Evaluate and Treat Consult to Speech Therapy Evaluate & Treat Comment: Physician Instructions: Evaluate and treat 01/08/22 08:37 Consult to Dietitian, Adult Stat Comment: please discuss wound care with Reason For Exam: wound care please discuss with before care 01/08/22 09:08 Consult to Wound Care Routine Comment: Consulting Provider: Mary- Wound Care Discharge provider: Blaise Dow MD Summary Hospital Course Discharge Diagnosis: Acute left posterior inferior cerebellar infarct Left popliteal nonobstructing vein thrombosis Intra atrial shunt Left leg fracture Hospital Course: Acute left posterior inferior cerebellar infarct. Patient was admitted essentially almost completely resolved the symptoms except some dizziness and some nausea. CT scan showed no bleed and MRI showed a large left infarct in the cerebellar with left vertebral artery obstruction. Actually patient did quite well on day 1 was feeling better and discussion with neurologist at [facility] it was elected that we should not anticoagulate until 2 weeks out for risk of bleed. Would recommend Plavix and aspirin. Patient did well physical therapy felt like he was doing well did not qualify for statin will rehab. On day 2 he was having some increase nausea and dizziness and CT scan was repeated of his head. No change was noted. No bleeding. He continued to improve and was feeling better on the day of discharge. With minimal symptoms. PT felt like he was doing well. Will be sent home and outpatient physical therapy. Follow-up with me and neurologist at the [facility]. Consult was done. Stroke was secondary probably to his intra atrial shunt. No obvious telemetry abnormalities. Echo did not show any other changes except that. Left popliteal nonobstructing deep vein thrombosis. We discussed with the neurologist. They recommended we do not anticoagulate due to risk of bleeding until 2 weeks out. They recommend a week from now to get a ultrasound to make sure clot has been extended and they feel low risk for pulmonary embolus with [id number] nonobstructed vein. Patient was having no symptoms otherwise felt well and will be followed. Intra-atrial shunt found on echo. Will be referred to [facility] cardiology did not appear to have any significant defects during that time. Left leg fracture. Nonweightbearing as per orthopedist. Probable cause of his DVT Status at Discharge Cognitive/behavioral status at discharge: at baseline, oriented and at baseline, confused Functional status at discharge: wheelchair bound Overall status at discharge: patient is progressing back to baseline Exam Vital Signs (past 8 hours): - 01/10/22 09:00 Temperature 98.3 F Pulse Rate 85 Respiratory Rate 17 Blood Pressure 125/74 Pulse Oximetry 98 Oxygen Delivery Method Room Air Oxygen Flow Rate 0 Narrative Exam Narrative: Alert dishevelled male lying in bed no acute distress HEENT exam is unremarkable neck supple without adenopathy lungs are clear heart regular rate and rhythm without murmurs clicks rubs or gallops. Abdomen is soft positive bowel sounds nontender. Extremities without cyanosis clubbing edema left leg and boot. Neurologic exam I did not get him up and walk him but otherwise completely unremarkable. Objective Labs Result Diagrams: 01/09/22 04:15 01/10/22 05:00 Labs: Laboratory Results - last 24 hr 01/10/22 05:00 Sodium 142 Potassium 3.7 Chloride 105 Carbon Dioxide 30 BUN 19 Creatinine 0.81 Estimated GFR > 60 BUN/Creatinine Ratio 23.5 H Glucose 106 H Calcium 9.3 PFSH Medical History Family history of pseudocholinesterase deficiency Headache HTN (hypertension) Surgical History Hx of appendectomy (~2003) Family History Father Age: 85 Hyperlipidemia Gout Mother Age: 82 Arthritis Social History household members: spouse and children Smoking Status: Former smoker alcohol intake: current Discharge Assessment & Plan Assessment and Plan Assessment: Status post CVA. Stable. Plan of Treatment: Discharge home Discharge Plan Discharge Plan Patient Disposition: Home Nursing Discharge Comment: Please set up left leg periphreal venous doppler for follow up of popleteal dvt on sunday the second as outpt please Discharge orders & Medications Prescriptions: New atorvastatin [Lipitor] 20 mg Tablet 80 mg PO BEDTIME Qty: 90 2RF clopidogrel 75 mg Tablet 75 mg PO DAILY Qty: 21 0RF Continued amlodipine 10 mg Tablet 10 mg PO QAM 0RF hydrochlorothiazide 12.5 mg Tablet 12.5 mg PO QAM 0RF gabapentin 300 mg capsule 900 mg PO TID 0RF Label Comments: take 3 capsule by mouth three times a day MAY ALSO 2 capsule by mouth at bedtime NEEDED FOR PAIN gabapentin 300 mg capsule 600 mg PO BEDTIME PRN (Reason: Pain (Scale Score 7-10)) 0RF ondansetron HCl 4 mg Tablet 4 mg PO Q6H PRN (Reason: nausea/vomiting) Qty: 60 1RF Discontinued atorvastatin 20 mg Tablet 20 mg PO QAM 0RF aspirin 81 mg Tablet 81 mg PO QAM 0RF Follow up/Referrals: Blaise Dow MD [Primary Care Provider] - 01/17/22 (please call for appoinment) Other Ambulatory Orders: US periph venous low extrem lt (Stat) Timeframe: [id number] Facility: [facility] - Location: Radiology Ordered By: Blaise Dow Diet/Activity/Treatments Diet: Diet as Tolerated Diet comment: Increase protien for wound healing. Activity: as tolerated, knee scooter ok. Skin/Wound/Dressing Care Skin care: Continue with wound care per [facility]. Supplies sent. Dressing: dressing changes as preiously ordered. Visit Report/Discharge Packet Instructions: Ischemic Stroke, DI for Deep Vein Thrombosis, Cerebellar Stroke Discharge Data Primary Care Provider: Blaise Dow Quality VTE Deep Vein Thrombosis/Pulmonary Embolism Present on Admission: No
== END 2022-01-10 11:13 | disposition home health service (06) | DRG 64 ==
LOC: ED 17:08 → AC 18:21 → ICU 01-08 10:25 → AC 01-13 13:09 → ICU 01-13 13:09
PROVIDERS: Admitting Provider Family Medicine; Emergency Provider Emergency Medicine; PCP Family Medicine; Referring Provider Emergency Medicine; Visit Provider Family Medicine
DX: I63.442 Cerebral infarction due to embolism of left cerebellar artery (principal); U07.1 COVID-19; I82.432 Acute embolism and thrombosis of left popliteal vein; Q21.1 Atrial septal defect; S82.892S Other fracture of left lower leg, sequela; E78.5 Hyperlipidemia, unspecified; I10 Essential (primary) hypertension; R29.700 NIHSS score 0; V28 Motorcycle rider injured in noncollision transport accident; Z87.891 Personal history of nicotine dependence
CPT/HCPCS: 36415; 70450; 70496; 70498; 70553; 71045; 80048; 80053; 80061; 82550; 83690; 83735; 84484; 85025; 85379; 85610; 87635; 87797; 93005; 93306; 93970; 96374; 97116; 97162; 97530; 99285; 99291; C9803; A9579; J1650; J2405; J2765; Q9967

== ENCOUNTER → 2022-01-11 12:32 | Outpatient (ROUT) | payer OTHER, SELFPAY ==
[2022-01-07 20:24] VITALS: BMI 27.1
== END ==
PROVIDERS: PCP Family Medicine; Visit Provider Family Medicine
DX: T81.49XA Infection following a procedure, other surgical site, initial encounter (principal)
CPT/HCPCS: 87070; 87077; 87147; 87186; 87205

== ENCOUNTER → 2022-01-13 11:14 | Outpatient (CLI) | payer OTHER, SELFPAY ==
[2022-01-07 20:24] VITALS: BMI 27.1
[2022-01-13 12:08] LABS: Add Manual Diff / Slide Review NO; Basophils Absolute Auto 0 /uL (0-100); Basophils Percent Auto 0.4 % (0-2); Eosinophils Absolute Auto 200 /uL (0-450); Eosinophils Percent Auto 2.3 % (2-4); Hematocrit 38.3 % (41-53); Hemoglobin 12.6 g/dL (13.5-17.5); Lymphocytes Absolute Auto 2300 /uL (1100-4500); Mean Corpuscular HGB Conc 32.9 % (30-36); Mean Corpuscular Volume 85.2 fL (80-100); Monocytes Absolute Auto 700 /uL (0-900); Monocytes Percent Auto 7.2 % (3-14); Neutrophils Absolute Auto 6200 /uL (1500-7000); Neutrophils Percent Auto 66.1 % (50-75); Platelet Count 567 X10^3/uL (150-400); Red Blood Cell Count 4.49 X10^6/uL (4.5-5.9); Red Cell Distribution Width 12.8 % (11.6-14.8); White Blood Cell Count 9.4 X10^3/uL (4.5-11.0)
[2022-01-13 12:30] LABS: Erythrocyte Sedimentation Rate 42 MM/HR (0-15)
[2022-01-13 14:34] LABS: High Sensitivity CRP - Cardiac > 15.0 mg/L (1.0-3.0)
[2022-01-13 14:46] LABS: C-Reactive Protein Quant 6.4 mg/dL (<1.0)
== END ==
PROVIDERS: PCP Family Medicine; Referring Provider Physician Assistant Surgical; Visit Provider Physician Assistant Surgical
DX: Z98.890 Other specified postprocedural states (principal)
CPT/HCPCS: 36415; 85025; 85651; 86140

== ENCOUNTER → 2022-01-17 10:24 | Outpatient (CLI) | payer OTHER, SELFPAY ==
[2022-01-07 20:24] VITALS: BMI 27.1
--- NOTE | 2022-01-17 10:25 | DI.US.S_ITS ---
PROCEDURE: US PERIPH VENOUS LOW EXTREM LT INDICATIONS: dvt follow up post cva TECHNIQUE: Real-time imaging, as well as color and pulse Doppler interrogation, were performed of the lower extremity deep veins from the inguinal ligament to the popliteal fossa. COMPARISON: 01/08/2022 FINDINGS: The common femoral, femoral and popliteal veins are normally compressible, and free of intraluminal thrombus. Color and pulse Doppler demonstrate normal phasic intraluminal flow. There is normal augmentation response to distal compression maneuver. IMPRESSION: No sonographic evidence of DVT. Previously seen partial thrombosis in the popliteal vein is no longer demonstrated. Dictated by: Daniel Pacheco M.D. on 01/17/2022 at 11:05 Approved by: Daniel Pacheco M.D. on 01/17/2022 at 11:05
== END ==
PROVIDERS: PCP Family Medicine; Referring Provider Family Medicine; Visit Provider Family Medicine
DX: I80.209 Phlebitis and thrombophlebitis of unspecified deep vessels of unspecified lower extremity (principal); I63.449 Cerebral infarction due to embolism of unspecified cerebellar artery
CPT/HCPCS: 93971

== ENCOUNTER 2023-07-09 10:21 | Emergency (ER) | payer OTHER, SELFPAY ==
[2022-01-07 20:24] VITALS: BMI 27.1
[2023-07-09 10:30] VITALS: BP 132/84; PULSE 64; RESP 18; TEMP 36.7; O2SAT 100; BMI 28.0
--- NOTE | 2023-07-09 10:31 | DI.RAD.S_ITS ---
PROCEDURE: XR CHEST 1V INDICATIONS: chest pain TECHNIQUE: One view of the chest was acquired. COMPARISON: [facility], CR, XR CHEST 1V, 01/07/2022, 13:16. FINDINGS: Surgical changes and devices: None. Lungs and pleura: Lungs are clear. No pleural effusions or pneumothorax. Mediastinum: Mediastinal contours appear normal. Heart size is borderline enlarged. Bones and chest wall: No suspicious bony lesions. Overlying soft tissues appear unremarkable. IMPRESSION: Portable chest within normal limits for age. Dictated by: Lida Colby M.D. on 07/09/2023 at 10:56 Approved by: Lida Colby M.D. on 07/09/2023 at 10:57
--- NOTE | 2023-07-09 10:38 | ED_ITS ---
HPI - Chest Pain General Chief Complaint: Chest Pain Stated Complaint: Chest Pain and numbness in fingers Time Seen by Provider: 07/09/23 10:28 Source: patient Mode of arrival: Ambulatory Limitations: no limitations History of Present Illness HPI narrative: 57-year-old male with history of cerebellar stroke (no residual deficits), PFO s/p repair presents by private vehicle from work for left-sided chest pain that he describes as a ?fluttering?. Patient was at work when he does this sensation, subsequently he noticed numbness in his fingers and he decided to present for evaluation. Reports history of hypertension hyperlipidemia. Denies family history of heart disease. Related Data Home Medications Medication Instructions Recorded Confirmed amlodipine 10 mg tablet 10 mg PO QAM 09/20/21 01/07/22 hydrochlorothiazide 12.5 mg tablet 12.5 mg PO QAM 09/20/21 01/07/22 gabapentin 300 mg capsule 600 mg PO BEDTIME PRN Pain (Scale 01/07/22 01/07/22 Score 7-10) gabapentin 300 mg capsule 900 mg PO TID 01/07/22 01/07/22 Previous Rx's Medication Instructions Recorded atorvastatin 20 mg tablet (Lipitor) 80 mg (4 x 20 mg) PO BEDTIME #90 01/10/22 tabs clopidogrel 75 mg tablet 75 mg PO DAILY #21 tabs 01/10/22 ondansetron HCl 4 mg tablet 4 mg PO Q6H PRN nausea/vomiting 01/10/22 #60 tabs Allergies Allergy/AdvReac Type Severity Reaction Status Date / Time succinylcholine Allergy Severe Anaphylaxis Verified 01/07/22 17:15 Review of Systems Review of Systems Narrative: CONSTITUTIONAL- Denies: fever, chills, fatigue HEENT- Denies: sore throat, nosebleed, vision changes RESPIRATORY- Denies: shortness of breath, cough, wheezing CARDIAC-reports: Chest pain Denies: edema, orthopnea GI- Denies: abdominal pain, nausea, vomiting, constipation, diarrhea - Denies: frequency, dysuria, hematuria, flank pain MSK- Denies: extremity pain, extremity swelling, joint pain, joint swelling SKIN- Denies: rash, itching, burn, swelling NEUROLOGICAL-reports: Numbness, bilateral fingers Denies: headache, weakness, dizziness PSYCHIATRIC- Denies: anxiety, depression, suicidal ideation, homicidal ideation Patient History Medical History Family history of pseudocholinesterase deficiency Headache HTN (hypertension) Surgical History Hx of appendectomy (~2003) Family History Father Age: 86 Hyperlipidemia Gout Mother Age: 83 Arthritis Social History household members: spouse and children Smoking Status: Former smoker alcohol intake: current Smoking Status: Former smoker alcohol intake frequency: a few times a week Substance Use Type: does not use Exam Initial Vital Signs Initial Vital Signs: Vital Signs Temperature 98.1 F 07/09/23 10:30 Pulse Rate 64 07/09/23 10:30 Respiratory Rate 18 07/09/23 10:30 Blood Pressure 132/84 07/09/23 10:30 Pulse Oximetry 100 07/09/23 10:30 Oxygen Delivery Method Room Air 07/09/23 10:30 Const: Awake, alert, no acute distress, nontoxic appearing Eyes: PERRL, EOMI, conjunctiva normal ENT: Atraumatic, dentition normal, mucous membranes moist Cardiac: regular rate, regular rhythm RESP: unlabored, clear bilaterally, no wheezing GI: Atraumatic, soft, nontender, nondistended, no rebound, no guarding MSK: Atraumatic, full range of motion, pulses equal Skin: Warm, Dry, intact, no rashes Neuro: AO x3, CN II-XII grossly intact, moves all extremities Psych: affect normal, mood normal, not suicidal, not homicidal Scores HEART Score Heart Score history: Slightly Suspicious Heart Score EKG: Normal Heart Score Age: 45-64 years old Heart Score risk factors: 1-2 risk factors Heart Score troponin: < or = to normal limit Heart Score Total: 2 Course Course Course Narrative: Left-sided chest pain. Patient reported that after he noticed the chest pain that he had numbness in his bilateral fingers. No focal neurologic deficit, patient currently has sensation in all of his fingers. Heart score 2 based on age and risk factors of hypertension and hyperlipidemia. Placed on satellite project site monitor, cardiac workup initiated. Orders Ordered: ED Orders 07/09/23 10:31 XR chest 1V Stat EKG-12 Lead Stat 07/09/23 10:40 BNP [NT-proBNP (BNP-Adult 18+)] Stat Complete Blood Count AUTO DIFF Stat Comprehensive Metabolic Panel Stat Lipase Stat Magnesium Stat PTT Partial Thromboplastin [place] Stat Prothrombin Time INR Stat Troponin & CK Cardiac Panel Stat 07/09/23 12:40 Trop I [Troponin I] Stat Reevaluation(s) Reevaluation #1: Troponins negative x2. Patient resting comfortably in bed, no abnormalities noted on satellite project site monitor. Patient and reassured, they have already called their healthcare system to set up a cardiology follow up appointment. ED return precautions discussed at bedside. Patient expressed understanding of the plan and is in agreement at this time. All questions answered at the time of discharge. Vital Signs Vital signs: Vital Signs - 8 hr 07/09/23 10:30 07/09/23 11:39 07/09/23 12:12 Temperature 98.1 F Pulse Rate 64 64 73 Respiratory Rate 18 18 16 Blood Pressure 132/84 136/78 117/76 Pulse Oximetry 100 96 98 Oxygen Delivery Method Room Air Room Air Room Air MDM - Chest Pain Differential Diagnosis Differential diagnosis: Likely stable angina, atypical chest pain and st elevation myocardial infarction Lab Data 07/09/23 10:40 07/09/23 10:40 Labs: Lab Results 07/09/23 07/09/23 Range/Units 10:40 12:40 WBC 6.2 (4.5-11.0) X10^3/uL RBC 4.46 L (4.5-5.9) X10^6/uL Hgb 13.6 (13.5-17.5) g/dL Hct 39.4 L (41-53) % MCV 88.4 (80-100) fL MCH 30.6 (26-34) PG MCHC 34.6 (30-36) % RDW 12.7 (11.6-14.8) % Plt Count 314 (150-400) X10^3/uL Neut % (Auto) 54.1 (50-75) % Lymph % (Auto) 35.6 (25-40) % [place] % (Auto) 7.4 (3-14) % Eos % (Auto) 2.1 (2-4) % Baso % (Auto) 0.8 (0-2) % Neut # (Auto) 3400 (4758-8649) /uL Lymph # (Auto) 2200 (2554-5329) /uL [place] # (Auto) 500 (0-900) /uL Eos # (Auto) 100 (0-450) /uL Baso # (Auto) 0 (0-100) /uL PT 11.0 (10.1-12.7) SECONDS INR 1.0 (0.9-1.3) APTT 30 (26-36) SECONDS Sodium 137 (137-145) mmol/L Potassium 4.1 (3.4-5.1) mmol/L Chloride 102 (98-107) mmol/L Carbon Dioxide 27 (22-32) mmol/L BUN 24 H (9-20) mg/dL Creatinine 0.88 (0.66-1.25) mg/dL Estimated GFR > 60 (>60) mL/min BUN/Creatinine Ratio 27.3 H (6-22) Glucose 97 (70-100) mg/dL Calcium 9.9 (8.4-10.2) mg/dL Magnesium 2.0 (1.6-2.3) mg/dL Total Bilirubin 0.4 (0.2-1.3) mg/dL AST 18 (17-59) IU/L ALT 27 (<50) IU/L Alkaline Phosphatase 45 (38-126) U/L Total Creatine Kinase 101 (55-170) U/L Troponin I < 0.012 < 0.012 (0.01-0.034) ng/mL NT-Pro-B Natriuret Pep < 20 (<125) pg/mL Total Protein 7.8 (6.3-8.2) g/dL Albumin 4.6 (3.5-5.0) g/dL Globulin 3.2 (1.7-4.1) g/dL Albumin/Globulin Ratio 1.4 (1.0-2.8) Lipase 294 (23-300) U/L ECG Data Interpretation: Normal sinus rhythm. Normal axis, normal rate. No ST T wave changes, no STEMI Discharge Plan Departure Patient Disposition: Home Clinical Impression: Chest pain Instructions: DI for Chest Pain Prescriptions: No Action amlodipine 10 mg Tablet 10 mg PO QAM hydrochlorothiazide 12.5 mg Tablet 12.5 mg PO QAM gabapentin 300 mg capsule 900 mg PO TID Patient Comments: take 3 capsule by mouth three times a day MAY ALSO 2 capsule by mouth at bedtime NEEDED FOR PAIN gabapentin 300 mg capsule 600 mg PO BEDTIME PRN (Reason: Pain (Scale Score 7-10)) atorvastatin [Lipitor] 20 mg Tablet 80 mg PO BEDTIME Qty: 90 2RF clopidogrel 75 mg Tablet 75 mg PO DAILY Qty: 21 0RF ondansetron HCl 4 mg Tablet 4 mg PO Q6H PRN (Reason: nausea/vomiting) Qty: 60 1RF Referrals: Kaylen Christensen MD [Physician] - Blaise Dow MD [Primary Care Provider] - Stand Alone Forms: Patient Portal/API
[2023-07-09 10:47] LABS: Add Manual Diff / Slide Review NO; Basophils Absolute Auto 0 /uL (0-100); Basophils Percent Auto 0.8 % (0-2); Eosinophils Absolute Auto 100 /uL (0-450); Eosinophils Percent Auto 2.1 % (2-4); Hematocrit 39.4 % (41-53); Hemoglobin 13.6 g/dL (13.5-17.5); Lymphocytes Absolute Auto 2200 /uL (1100-4500); Lymphocytes Percent Auto 35.6 % (25-40); Mean Corpuscular HGB Conc 34.6 % (30-36); Mean Corpuscular Hemoglobin 30.6 PG (26-34); Mean Corpuscular Volume 88.4 fL (80-100); Monocytes Absolute Auto 500 /uL (0-900); Monocytes Percent Auto 7.4 % (3-14); Neutrophils Absolute Auto 3400 /uL (1500-7000); Neutrophils Percent Auto 54.1 % (50-75); Platelet Count 314 X10^3/uL (150-400); Red Blood Cell Count 4.46 X10^6/uL (4.5-5.9); Red Cell Distribution Width 12.7 % (11.6-14.8); White Blood Cell Count 6.2 X10^3/uL (4.5-11.0)
[2023-07-09 10:57] LABS: PTT Partial Thromboplastin Tim 30 SECONDS (26-36)
[2023-07-09 10:58] LABS: Alanine Aminotransferase 27 IU/L (<50); Albumin 4.6 g/dL (3.5-5.0); Albumin Globulin Ratio 1.4 (1.0-2.8); Alkaline Phosphatase 45 U/L (38-126); Aspartate Aminotransferase 18 IU/L (17-59); BUN Creatinine Ratio 27.3 (6-22); Bilirubin Total 0.4 mg/dL (0.2-1.3); Blood Urea Nitrogen 24 mg/dL (9-20); Calcium 9.9 mg/dL (8.4-10.2); Carbon Dioxide 27 mmol/L (22-32); Chloride 102 mmol/L (98-107); Creatine Kinase 101 U/L (55-170); Estimated Glomerular Filt Rate > 60 mL/min (>60); Globulin 3.2 g/dL (1.7-4.1); Glucose 97 mg/dL (70-100); HEMOLYSIS < 15 (0-50); Lipase 294 U/L (23-300); Potassium 4.1 mmol/L (3.4-5.1); Sodium 137 mmol/L (137-145); Total Protein 7.8 g/dL (6.3-8.2)
[2023-07-09 11:07] LABS: NT-proBNP (BNP-Adult 18+) < 20 pg/mL (<125)
[2023-07-09 11:09] LABS: Troponin I < 0.012 ng/mL (0.01-0.034)
--- NOTE | 2023-07-09 11:15 | PC.NURSE ---
provider at bedside with pt and family
[2023-07-09 11:39] VITALS: BP 136/78; PULSE 64; RESP 18; O2SAT 96
[2023-07-09 12:12] VITALS: BP 117/76; PULSE 73; RESP 16; O2SAT 98
[2023-07-09 13:16] LABS: Troponin I < 0.012 ng/mL (0.01-0.034)
[2023-07-09 13:35] VITALS: BP 135/90; PULSE 64; RESP 18; O2SAT 97
== END 2023-07-09 13:42 | disposition home or self-care (01) ==
PROVIDERS: Emergency Provider Emergency Medicine; PCP Family Medicine
DX: R07.9 Chest pain, unspecified (principal)
CPT/HCPCS: 36415; 71045; 80053; 82550; 83690; 83735; 83880; 84484; 85025; 85610; 85730; 93005; 93010; 99283; 99284